=== PATIENT | male | born 1955 | race Caucasian/White ===

== ENCOUNTER 2021-05-11 12:48 | Emergency (ER) | payer MEDICARE ==
[2021-05-11 13:01] VITALS: PULSE 55
[2021-05-11] MEDS ORDERED: MECLIZINE 25 MG TAB PO STA (14:41)
[2021-05-11 15:10] LABS: Basophils % (A) 0 %; Eosinophils # (A) 0.1 k/uL (0-0.7); Eosinophils % (A) 1 %; HCT 49.8 % (39.0-53.0); HGB 16.2 gm/dL (13.0-17.5); Lymphocytes % (A) 11 %; MCH 31.6 pg (25.0-35.0); MCHC 32.5 g/dL (31.0-37.0); MCV 97.3 fL (80.0-100.0); Mean Platelet Volume 8.2; Monocytes # (A) 0.3 k/uL (0-1.0); Monocytes % (A) 4 %; Neutrophils # (A) 7.3 k/uL (1.3-7.7); Neutrophils % (A) 83 %; Platelet Count 190 k/uL (150-450); RBC 5.12 m/uL (4.30-5.90); RDW 13.5 % (11.5-15.5); WBC 8.8 k/uL (3.8-10.6)
[2021-05-11 15:16] LABS: ALT 19 U/L (4-49); AST 24 U/L (17-59); African American GFR (CKD) >90 (>60 ml/min/1.73 sqM); Alkaline Phosphatase 75 U/L (38-126); Anion Gap 8 mmol/L; Blood Urea Nitrogen 15 mg/dL (9-20); Calcium 9.5 mg/dL (8.4-10.2); Carbon Dioxide 25 mmol/L (22-30); Chloride 105 mmol/L (98-107); Glucose 208 mg/dL (74-99); Magnesium 1.8 mg/dL (1.6-2.3); Non-African American GFR(CKD) >90 (>60 ml/min/1.73 sqM); Potassium 4.5 mmol/L (3.5-5.1); Sodium 138 mmol/L (137-145); Total Bilirubin 0.8 mg/dL (0.2-1.3); Total Protein 6.6 g/dL (6.3-8.2)
[2021-05-11 15:38] LABS: INR 1.1 (<1.2); Partial Thromboplastin Time 22.3 sec (22.0-30.0); Prothrombin Time 11.7 sec (9.0-12.0)
--- NOTE | 2021-05-11 15:48 | ED ---
General Adult HPI - General Chief complaint: Dizziness Stated complaint: dizziness Time Seen by Provider: 05/11/21 13:00 Source: patient, family, RN notes reviewed, old records reviewed Mode of arrival: wheelchair Limitations: no limitations - History of Present Illness Initial comments: This is a 65-year-old male who presents emergency Department because his dizziness. Patient states woke up in the middle the night he went to walk around everything was moving. Patient states he became nauseous and vomited once and was also at one point time diaphoretic per patient states anytime he moves much worse. Patient states she's never had before. Patient denies any chest pain difficulty breathing or shortness of breath per patient denies any fever chills or cough per patient denies any headache patient denies numbness or weakness. Patient denies any lightheadedness. Patient denies any near syncopal episode. Patient denies any abdominal pain. Patient denies any dysuria hematuria urinary frequency. Patient has a past medical history significant for diabetes hypertension high cholesterol and atrial fibrillation - Related Data Previous Rx's Medication Instructions Recorded Meclizine [Antivert] 25 mg PO TID #20 tab 05/11/21 Sacubitril/Valsartan [Entresto 24 1 each PO Q12H #30 tablet 05/11/21 mg-26 mg Tablet] Allergies Allergy/AdvReac Type Severity Reaction Status Date / Time Penicillins Allergy Rash/Hives Verified 05/11/21 13:02 Review of Systems ROS Statement: Those systems with pertinent positive or pertinent negative responses have been documented in the HPI. ROS Other: All systems not noted in ROS Statement are negative. Past Medical History Past Medical History: Atrial Fibrillation, Heart Failure, Diabetes Mellitus, Hypertension History of Any Multi-Drug Resistant Organisms: None Reported Additional Past Surgical History / Comment(s): shoulder sx Past Psychological History: No Psychological Hx Reported Smoking Status: Former smoker Past Alcohol Use History: Occasional Past Drug Use History: None Reported General Exam - General Exam Comments Initial Comments: GENERAL: Patient is well-developed and well-nourished. Patient is nontoxic and well- hydrated and is in mild distress. ENT: Neck is soft and supple. No significant lymphadenopathy is noted. Oropharynx is clear. Moist mucous membranes. Neck has full range of motion without eliciting any pain. EYES: The sclera were anicteric and conjunctiva were pink and moist. Extraocular movements were intact and pupils were equal round and reactive to light. Eyelids were unremarkable. PULMONARY: Unlabored respirations. Good breath sounds bilaterally. No audible rales rhonchi or wheezing was noted. CARDIOVASCULAR: There is a regular rate and rhythm without any murmurs gallops or rubs. ABDOMEN: Soft and nontender with normal bowel sounds. SKIN: Skin is clear with no lesions or rashes and otherwise unremarkable. NEUROLOGIC: Patient is alert and oriented x3. Cranial nerves II through XII are grossly intact. Motor and sensory are also intact. Normal speech, volume and content. Symmetrical smile. Finger to nose testing bilaterally was normal MUSCULOSKELETAL: Normal extremities with adequate strength and full range of motion. No lower extremity swelling or edema. No calf tenderness. LYMPHATICS: No significant lymphadenopathy is noted PSYCHIATRIC: Normal psychiatric evaluation. Limitations: no limitations Course Vital Signs 05/11/21 12:58 Temperature 98.1 F Pulse Rate 55 L Respiratory 17 Rate Blood Pressure 149/81 O2 Sat by Pulse 98 Oximetry Medical Decision Making - Medical Decision Making EKG shows sinus bradycardia at [address] interval 286 QRS is under 4 QT interval is 56 QTC is 466. EKG shows no ST segment elevation or depression. CT of the brain shows no acute abnormality. Chest x-ray shows no acute abnormality. I gave the patient some Antivert while in the emergency department the patient improve his symptoms. - Lab Data Result diagrams: 05/11/21 14:56 05/11/21 14:56 Lab Results 05/11/21 05/11/21 05/11/21 Range/Units 14:56 14:56 14:56 WBC 8.8 (3.8-10.6) k/uL RBC 5.12 (4.30-5.90) m/uL Hgb 16.2 (13.0-17.5) gm/dL Hct 49.8 (39.0-53.0) % MCV 97.3 (80.0-100.0) fL MCH 31.6 (25.0-35.0) pg MCHC 32.5 (31.0-37.0) g/dL RDW 13.5 (11.5-15.5) % Plt Count 190 (150-450) k/uL MPV 8.2 Neutrophils % 83 % Lymphocytes % 11 % Monocytes % 4 % Eosinophils % 1 % Basophils % 0 % Neutrophils # 7.3 (1.3-7.7) k/uL Lymphocytes # 1.0 (1.0-4.8) k/uL Monocytes # 0.3 (0-1.0) k/uL Eosinophils # 0.1 (0-0.7) k/uL Basophils # 0.0 (0-0.2) k/uL PT 11.7 (9.0-12.0) sec INR 1.1 (<1.2) APTT 22.3 (22.0-30.0) sec Sodium 138 (137-145) mmol/L Potassium 4.5 (3.5-5.1) mmol/L Chloride 105 (98-107) mmol/L Carbon Dioxide 25 (22-30) mmol/L Anion Gap 8 mmol/L BUN 15 (9-20) mg/dL Creatinine 0.79 (0.66-1.25) mg/dL Est GFR (CKD-EPI)AfAm >90 (>60 ml/min/1.73 sqM) Est GFR (CKD-EPI)NonAf >90 (>60 ml/min/1.73 sqM) Glucose 208 H (74-99) mg/dL Calcium 9.5 (8.4-10.2) mg/dL Magnesium 1.8 (1.6-2.3) mg/dL Total Bilirubin 0.8 (0.2-1.3) mg/dL AST 24 (17-59) U/L ALT 19 (4-49) U/L Alkaline Phosphatase 75 (38-126) U/L Troponin I (0.000-0.034) ng/mL Total Protein 6.6 (6.3-8.2) g/dL Albumin 4.0 (3.5-5.0) g/dL 05/11/21 Range/Units 14:56 WBC (3.8-10.6) k/uL RBC (4.30-5.90) m/uL Hgb (13.0-17.5) gm/dL Hct (39.0-53.0) % MCV (80.0-100.0) fL MCH (25.0-35.0) pg MCHC (31.0-37.0) g/dL RDW (11.5-15.5) % Plt Count (150-450) k/uL MPV Neutrophils % % Lymphocytes % % Monocytes % % Eosinophils % % Basophils % % Neutrophils # (1.3-7.7) k/uL Lymphocytes # (1.0-4.8) k/uL Monocytes # (0-1.0) k/uL Eosinophils # (0-0.7) k/uL Basophils # (0-0.2) k/uL PT (9.0-12.0) sec INR (<1.2) APTT (22.0-30.0) sec Sodium (137-145) mmol/L Potassium (3.5-5.1) mmol/L Chloride (98-107) mmol/L Carbon Dioxide (22-30) mmol/L Anion Gap mmol/L BUN (9-20) mg/dL Creatinine (0.66-1.25) mg/dL Est GFR (CKD-EPI)AfAm (>60 ml/min/1.73 sqM) Est GFR (CKD-EPI)NonAf (>60 ml/min/1.73 sqM) Glucose (74-99) mg/dL Calcium (8.4-10.2) mg/dL Magnesium (1.6-2.3) mg/dL Total Bilirubin (0.2-1.3) mg/dL AST (17-59) U/L ALT (4-49) U/L Alkaline Phosphatase (38-126) U/L Troponin I <0.012 (0.000-0.034) ng/mL Total Protein (6.3-8.2) g/dL Albumin (3.5-5.0) g/dL Disposition Clinical Impression: Vertigo Disposition: HOME SELF-CARE Instructions (If sedation given, give patient instructions): Vertigo (ED) Prescriptions: Meclizine [Antivert] 25 mg PO TID #20 tab Sacubitril/Valsartan [Entresto 24 mg-26 mg Tablet] 1 each PO Q12H #30 tablet Is patient prescribed a controlled substance at d/c from ED?: No Referrals: Nonstaff,Physician [Primary Care Provider] - 1-2 days Time of Disposition: 16:35
--- NOTE | 2021-05-11 15:59 | XR ---
EXAMINATION TYPE: XR chest 2V DATE OF EXAM: 05/11/2021 COMPARISON: None INDICATION: Chest pain and dizziness TECHNIQUE: Frontal and lateral views of the chest are obtained. FINDINGS: The heart size is normal. The pulmonary vasculature is normal. The lungs are clear. This hyperinflation flattening the diaphragms compatible with COPD IMPRESSION: 1. No acute pulmonary process. 2. COPD
--- NOTE | 2021-05-11 16:15 | CT ---
EXAMINATION TYPE: CT brain wo con DATE OF EXAM: 05/11/2021 COMPARISON: None INDICATION: vertigo and weakness DLP: 1099.4 mGycm, Automated exposure control for dose reduction was used. CONTRAST: None CT of the brain is performed utilizing 3 mm thick sections through the posterior fossa and 3 mm thick sections through the remaining calvarium. Study is performed within 24 hours of arrival to the hosp ital. No abnormal hyperdensity is present to suggest an acute intracranial hemorrhage. No mass lesion is evident. No acute infarcts are evident. Ventricles and sulci are mildly prominent for the patient age. Also thickening is seen within maxillary sinuses. Remaining paranasal sinuses and mastoid air cells a re clear. IMPRESSIONS: 1. Mild age-related atrophy.
[2021-05-11 17:07] VITALS: BP 148/80; RESP 18; TEMP 98.9
== END 2021-05-11 17:05 | disposition home or self-care (01) ==
LOC: EC 12:48
DX: R42 Dizziness and giddiness (principal); E11.9 Type 2 diabetes mellitus without complications; I11.0 Hypertensive heart disease with heart failure; I50.9 Heart failure, unspecified; I48.91 Unspecified atrial fibrillation; Z87.891 Personal history of nicotine dependence
CPT/HCPCS: 36415; 70450; 71046; 80053; 83735; 84484; 85025; 85610; 85730; 93005; 99284

== ENCOUNTER 2024-01-05 19:18 | Outpatient (CLI) | payer OTHER ==
--- NOTE | 2024-01-10 13:52 | P.PCN ---
Date of Procedure: 01/05/24 Operative Findings: Polysomnography report Date of services 01/05/2024 Pertinent history This is a 68-year-old male patient with last known ago witnessed apneas. The patient is chronic fatigue and limited sleepiness with an Greenwood score of 4. The patient is obese with a BMI of 42. The patient has significant crowding the posterior pharynx with 1 about the class IV. The patient also has family history of obstructive sleep apnea. He has comorbid conditions including previous history of viral cardiomyopathy, hypertension, chronic A-fib and diabetes mellitus. Patient also has BPH maintained on Flomax. Pertinent physical findings The patient's height is 5 feet and 4 inches, weight is 247 pounds with a BMI of 42.4 Technical description The patient was studied using a standard complex polysomnography protocol that included recording of the 2 EKG, Central, occipital and frontal EEG, right and left outer canthus EOG, submental EMG, right and left anterior tibialis EMG, respiratory airflow by thermocouple and or pressure/flow transducer, respiratory efforts by abdominal and thoracic PVDF belts, oxygen saturation by cable oximetry. Position by observation synchronized the PSG. Equipment used: [employer]. Sleep characteristics Total recording duration was 417.5 minutes and the patient had a total sleep time was 336.0 minutes. The overall sleep the patient was 80.4%, related to sleep onset was 31 minutes. The latency to REM sleep was 148.0 minutes. Sleep architecture was catheterized by 45.8% stage I, 42.7% stage II, 0% stage III, 11.5% of REM sleep. The wake after sleep onset time was 43 minutes. The total arousal index was 19.6 Respiratory analysis The study showed a total of 130 obstructive events of which 3 were obstructive apneas, 0 mixed apneas and 127 for obstructive hypopneas. The AHI was calculated to be at 22.3. No central events and the patient's central apnea index was 0. Noted the patient's disease was worsened with supine body position. AHI while supine was 45 and the AHI during REM sleep was 32.7. Oxygenation analysis The patient had a baseline pulse ox of 96% while awake. This the lowest oxygen saturation occurred during REM sleep and this was at 71%. The patient spent approximately 7 hours and 39 minutes of sleep time below pulse ox of 89% consistent with significant and severe nocturnal oxygen desaturations Sleep continue with the summary The patient had about 110 arousals with an index of 19.6. The respiratory arousal index was 6.3 Periodic limb movement summary There was a total of 314. Re periodic limb movement activity with an index of 56.1. The patient had a total of 6 periodic limb movement activity with arousa ls with an index of 1.1 Cardiac summary Average heart rate was 76 with a minimum heart rate of 68 and a maximum heart rate of 84 Assessment Obstructive sleep apnea moderate in severity with an AHI of 22.4, worsening supine body position with an AHI of 45 and worse during REM sleep with an AHI of 32.7. Nocturnal oxygen saturation with a minimum pulse ox of 72% occurring during REM sleep. Loud snoring Chronic fatigue and sleepiness, Greenwood score of 4 Obesity with a BMI of 42 History of viral cardiomyopathy History of chronic atrial fibrillation Diabetes mellitus type 2 Hypertension BPH Plan Recommending CPAP therapy for this patient who has significant obstructive sleep apnea and has significant sleep fragmentation and abnormality sleep architecture with the patient is overall presentation of stage I and stage II sleep. Obviously, this patient would benefit from CPAP therapy. Patient will be asked to come into the sleep center to undergo a CPAP titration and proceed with the treatment accordingly. Based on his disease severity, symptoms and comorbidities, CPAP therapy is recommended for this patient.
== END 2024-01-06 05:30 | disposition home or self-care (01) ==
LOC: 3 N SLEEP 19:18
PROVIDERS: ATTEND Internal Medicine Critical Care Medicine
DX: G47.33 Obstructive sleep apnea (adult) (pediatric) (principal); G47.36 Sleep related hypoventilation in conditions classified elsewhere; G47.10 Hypersomnia, unspecified; G47.52 REM sleep behavior disorder; R53.82 Chronic fatigue, unspecified; E66.9 Obesity, unspecified; E11.9 Type 2 diabetes mellitus without complications; I10 Essential (primary) hypertension; I48.20 Chronic atrial fibrillation, unspecified; N40.0 Benign prostatic hyperplasia without lower urinary tract symptoms; Z68.41 Body mass index [BMI] 40.0-44.9, adult; Z86.79 Personal history of other diseases of the circulatory system; Z88.0 Allergy status to penicillin; Z79.899 Other long term (current) drug therapy
CPT/HCPCS: 95810

== ENCOUNTER → 2024-04-02 | Outpatient (CLI) | payer OTHER ==
[2024-04-02 19:26] LABS: BUN/Creat Ratio 20.85 Ratio (12.00-20.00); Blood Urea Nitrogen 27.1 mg/dL (9.0-27.0); Carbon Dioxide 22.7 mmol/L (21.6-31.8); Chloride 104 mmol/L (96-109); Glucose 192 mg/dL (70-110); Sodium 140 mmol/L (135-145)
[2024-04-02 19:27] LABS: Calcium 9.2 mg/dL (8.7-10.3)
== END | disposition home or self-care (01) ==
LOC: LABWHC1 10:35
PROVIDERS: ATTEND Internal Medicine
DX: Z01.812 Encounter for preprocedural laboratory examination (principal)
CPT/HCPCS: 36415; 80048

== ENCOUNTER 2024-04-06 11:31 | Day surgery (SDC) | payer OTHER ==
[2024-04-04 12:10] VITALS: BMI 37.8
[2024-04-06 12:11] VITALS: RESP 18; TEMP 96.9
[2024-04-06 12:24] LABS: Glucose,Whole Blood 181 mg/dL (70-110)
[2024-04-06] MEDS: SODIUM CHLORIDE 0.9% 500 ML 500 ML IV SCH (12:29)
[2024-04-06] MEDS: IV FLUID CONTINUATION 1,000 ML IV ONE ×2 (12:31→14:20)
[2024-04-06] MEDS ORDERED: LIDOCAINE 1% INJ 10MG/ML (20 ML MDV) ONE (13:26)
[2024-04-06] MEDS ORDERED: PROPOFOL 10 MG/ML 20 ML VIAL IV ONE (13:26)
[2024-04-06] MEDS: BENZOCAINE SPRAY 1 CAN TOPICAL ONE (13:27)
--- NOTE | 2024-04-06 13:52 | P.TEE ---
Description of Procedure(s): Procedure performed: Transesophageal Echocardiogram with color flow doppler, pulsed wave doppler and continuous wave doppler, synchronized cardioversion Moderate conscious sedation: Moderate conscious sedation was supplied by anesthesia, see separate report. Complications: none Indications: atrial fibrillation PROCEDURE: After the risks, benefits and alternatives of the above mentioned procedure was explained in detail with the patient, informed consent was obtained. Patient was brought to the lab in a fasting state. Patient was given sedation by anesthesia, see separate report. The throat was sprayed with Hurricane to anesthetize the throat. A lubricated Omni probe was then introduced into the esophagus and stomach and multiple views were obtained. 2D echo with color flow doppler, pulsed wave doppler and continuous wave doppler was utilized. Agitated saline bubbles were injected to assess for any intra-atrial shunt. The probe was then removed. There was no thrombus noted and therefore patient underwent synchronized cardioversion x 1 with 200J with resultant sinus rhythm. Patient tolerated the procedure well. Patient was transferred to the post procedure area in stable and satisfactory condition. FINDINGS: 1. The aortic valve is tricuspid and function normally. 2. The mitral valve appears be normal with mild regurgitation. 3. Tricuspid valve appears to be normal. 4. The interatrial septum is intact. No evidence of PFO. 5. Left atrial appendage is free of clot. 6. Left ventricular ejection fraction 35-40%
[2024-04-06 14:45] LABS: Glucose,Whole Blood 147 mg/dL (70-110)
[2024-04-06 15:06] VITALS: BP 113/69; PULSE 64
== END 2024-04-06 15:21 | disposition home or self-care (01) ==
LOC: OR 11:31
PROVIDERS: ATTEND Internal Medicine
DX: I48.0 Paroxysmal atrial fibrillation (principal); I34.0 Nonrheumatic mitral (valve) insufficiency; I11.0 Hypertensive heart disease with heart failure; I50.9 Heart failure, unspecified; G47.33 Obstructive sleep apnea (adult) (pediatric); E11.9 Type 2 diabetes mellitus without complications; K21.9 Gastro-esophageal reflux disease without esophagitis; F41.9 Anxiety disorder, unspecified; Z88.0 Allergy status to penicillin; Z79.01 Long term (current) use of anticoagulants; Z79.4 Long term (current) use of insulin; Z79.899 Other long term (current) drug therapy
CPT/HCPCS: 93312; 93320; 93325; 92960; J2001; J2704

== ENCOUNTER 2024-06-13 19:30 | Outpatient (CLI) | payer OTHER ==
--- NOTE | 2024-06-19 22:38 | P.PCN ---
Date of Procedure: 06/13/24 Operative Findings: Polysomnography/CPAP titration report Date of service is 06/13/2024 Pertinent history 68-year-old male patient with known history of obstructive sleep apnea with an AHI of 22, worse during REM sleep with an AHI of 32 during REM. The patient also has worsening sleep apnea in the supine body position with an AHI of 45 while supine. The patient was quite hesitant in utilizing CPAP therapy due to claustrophobia. After lengthy discussion, patient decided to undergo a CPAP titration. The patient is not a candidate for inspire/hypoglossal nerve stimulation therapy due to an elevated body mass index Pertinent physical findings The patient has a body mass index of 42.6 with a weight of 248 Technical description The patient was studied using a standard complex polysomnography protocol that included recording of the Lead II EKG, Central, occipital and frontal EEG, right and left outer canthus EOG, submental EMG, right and left anterior tibialis EMG, respiratory airflow by thermocouple and or pressure/flow transducer, respiratory efforts by abdominal and thoracic PVDF belts, oxygen saturation by cable oximetry. Position by observation synchronized the PSG. Equipment used: [employer]. Stepwise CPAP titration was done to eliminate obstructive respiratory events Sleep characteristics The total recording duration was 416 minutes. The total sleep time was 353.0 minutes. The sleep efficiency was 84.8%. Latency to sleep onset was 21.5 minutes. Latency to REM sleep was 100 minutes. The sleep architecture was characterized by 22.1% stage I, 36% stage II, 0% stage III and a total of 41.5% REM sleep. Obviously there was a REM labile while being on CPAP therapy CPAP titration study The patient was started on CPAP titration initially at a pressure of 4 cm of water pressure was gradually increased by increments of 1 cm to reach a maximum CPAP pressure of 12 cm of water. The patient was also trialed on BiPAP at pressures of 13/9 ,14/10 and 15/11 cm of water. I carefully reviewed the titration taking account the patient's sleep stage and body position. All sleep stages were encountered. The patient was in a REM rebound. Opted for CPAP over BiPAP therapy in this patient. There was considerable improvement in the patient's obstructive respiratory events elevated CPAP pressures use especially at the highest pressure of 12 cm of water. There was some residual obstructive hypopneas. Based on all this, I am going to offer the patient a APAP machine with a wide range of pressures starting with a minimum of 7 cm of water and a maximum of 15 cm of water. Sleep continuity summary The patient a total of 76 arousals with an index of 12.9. The respiratory arousal index was 1.4 Periodic limb movement activity A total of 11 periodic limb movement activity with a index of 1.9 Cardiac summary The patient has an average cardiac rate of 69 with a minimum heart rate of 42 and a maximum heart rate of 146. The patient was found to be in A-fib. Assessment Obstructive sleep apnea with an AHI of 22, worsened in supine body position and worse during REM sleep. Improved with CPAP therapy REM rebound related to CPAP titration/CPAP therapy Obesity with a body mass index of 42 Atrial fibrillation Diabetes mellitus type 2 Hypertension Hyperlipidemia CHF with systolic heart failure Plan Will provide the patient an APAP machine pressures of minimum of 7 and a maximum of 15. The patient will be offered an AirFit F30 I, medium size. Encourage weight loss. Optimize comorbidities. See him back in office in 30 to 90 days to assess clinical response and compliancy.
== END 2024-06-14 05:43 | disposition home or self-care (01) ==
LOC: 3 N SLEEP 19:30
PROVIDERS: ATTEND Internal Medicine Critical Care Medicine
DX: G47.33 Obstructive sleep apnea (adult) (pediatric)
CPT/HCPCS: 95811

== ENCOUNTER → 2024-11-09 | Outpatient (CLI) | payer OTHER ==
[2024-11-09 15:31] LABS: Blood Urea Nitrogen 23.6 mg/dL (9.0-27.0); Chloride 109 mmol/L (96-109); Sodium 144 mmol/L (135-145)
[2024-11-09 16:52] LABS: HCT 50.5 % (39.6-50.0); HGB 16.5 g/dL (13.0-17.0); MCH 32.4 pg (27.0-32.0); MCHC 32.7 g/dL (32.0-37.0); MCV 99.2 FL (80.0-97.0); Mean Platelet Volume 10.8 FL (9.5-12.2); NRBC Per 100 WBC 0 X 10*3/uL (0.00-0.01); Platelet Count 235 X 10*3/uL (140-440); RBC 5.09 X 10*6/uL (4.40-5.60); RDW 12.8 % (11.5-14.5); WBC 6.32 X 10*3/uL (4.50-10.00)
== END | disposition home or self-care (01) ==
LOC: LABPAT 12:03
PROVIDERS: ATTEND Internal Medicine Clinical Cardiac Electrophysiology
DX: I48.19 Other persistent atrial fibrillation (principal)
CPT/HCPCS: 36415; 80051; 82565; 84520; 85027

== ENCOUNTER 2024-11-14 20:24 | Inpatient (IN) | payer OTHER, MEDICARE ==
--- NOTE | 2024-11-14 20:58 | XR ---
EXAMINATION TYPE: XR chest 2V DATE OF EXAM: 11/14/2024 8:54 PM COMPARISON: Chest x-ray May 11, 2021 CLINICAL INDICATION: Male, 69 years old with history of difficulty breathing, TECHNIQUE: Frontal and lateral views of the chest are obtained. FINDINGS: There is mild cardiomegaly with mild central vascular congestion. No pleural effusion or p neumothorax seen bilaterally. The osseous structures are intact. IMPRESSION: Findings suggest CHF exacerbation/fluid overload state. Correlate clinically. [facility], , 11/14/2024 8:55 PM
--- NOTE | 2024-11-14 21:06 | ED ---
SOB HPI - General Chief Complaint: Shortness of Breath Stated Complaint: SOB Time Seen by Provider: 11/14/24 20:30 Source: patient, EMS Mode of arrival: EMS - History of Present Illness Initial Comments: 69-year-old male with past medical history of A-fib, congestive heart failure, diabetes, hypertension who presents to the emergency department reporting shortness of breath. Patient states that for the past 2 days he has had increased work of breathing. He typically does not wear oxygen at home. He has had sick contacts that are positive for influenza A. When EMS got on scene tonight they found the patient to be oxygenating in the 70s. They did give him a DuoNeb breathing treatment and placed him on 4 L of oxygen. Patient does admit to history of congestive heart failure. Was previously on Lasix however was taken off of this medication per his doctors. He is scheduled to have a cardiac ablation on the . Because of this upcoming procedure he was taken off of his amiodarone 1 month ago. Patient admits to some tightness in his chest. No report of any fevers. No ripping or tearing station to his back. Does admit to some lower extremity edema. No other alleviating, precipitating or modifying factors - Related Data Home Medications Medication Instructions Recorded Confirmed Amiodarone [Cordarone] 200 mg PO DAILY 04/04/24 04/06/24 Apixaban [Eliquis] 5 mg PO BID 04/04/24 04/06/24 Atorvastatin [Lipitor] 40 mg PO HS 04/04/24 04/06/24 Empagliflozin [Jardiance] 25 mg PO DAILY 04/04/24 04/06/24 Furosemide [Lasix] 40 mg PO DAILY PRN 04/04/24 04/06/24 Insulin Aspart [NovoLOG Flexpen] 10 units SQ TID 04/04/24 04/06/24 Insulin Detemir (Levemir) [Levemir] 45 unit SQ HS 04/04/24 04/06/24 Magnesium Oxide [Mag-Ox] 400 mg PO DAILY 04/04/24 04/06/24 Metoprolol Succinate [Metoprolol 25 mg PO DAILY 04/04/24 04/06/24 Succinate ER] Multivitamins, Thera [Multivitamin 1 tab PO DAILY 04/04/24 04/06/24 (formulary)] Omeprazole 20 mg PO DAILY 04/04/24 04/06/24 Saw [place] (Unknown Dose) 1 tab PO DAILY 04/04/24 04/06/24 Tamsulosin [Flomax] 0.4 mg PO HS 04/04/24 04/06/24 Previous Rx's Medication Instructions Recorded Sacubitril/Valsartan [Entresto 24 1 each PO Q12H #30 tablet 05/11/21 mg-26 mg Tablet] Allergies Allergy/AdvReac Type Severity Reaction Status Date / Time Penicillins Allergy Rash/Hives Verified 11/14/24 20:32 Review of Systems ROS Statement: Those systems with pertinent positive or pertinent negative responses have been documented in the HPI. ROS Other: All systems not noted in ROS Statement are negative. Past Medical History Past Medical History: Atrial Fibrillation, Heart Failure, Diabetes Mellitus, Hypertension History of Any Multi-Drug Resistant Organisms: None Reported Additional Past Surgical History / Comment(s): shoulder sx Past Psychological History: No Psychological Hx Reported Smoking Status: Former smoker Course Vital Signs 11/14/24 11/14/24 11/14/24 20:27 20:34 20:44 Temperature 98.9 F Pulse Rate 141 H 126 H Pulse Rate [ Investigations Director ] Respiratory 24 24 21 Rate Blood Pressure 112/70 114/66 Blood Pressure [Right Arm] O2 Sat by Pulse 99 95 Oximetry 11/14/24 11/14/24 11/14/24 21:05 21:20 21:35 Temperature Pulse Rate Pulse Rate [ 144 H 141 H 141 H Investigations Director ] Respiratory 18 17 18 Rate Blood Pressure Blood Pressure 89/63 104/61 91/68 [Right Arm] O2 Sat by Pulse 99 99 99 Oximetry 11/14/24 11/14/24 21:50 22:05 Temperature Pulse Rate Pulse Rate [ 131 H 135 H Investigations Director ] Respiratory 16 15 Rate Blood Pressure Blood Pressure 105/87 102/57 [Right Arm] O2 Sat by Pulse 97 95 Oximetry Medical Decision Making - Medical Decision Making Was pt. sent in by a medical professional or institution (, PA, CLINICAL DATA ASSOCIATE, urgent care, hospital, or residential...) When possible be specific @ -[No] Did you speak to anyone other than the patient for history (EMS, parent, family, police, friend...)? What history was obtained from this source @ -[No] Did you review nursing and triage notes (agree or disagree)? Why? @ -[I reviewed and agree with nursing and triage notes] Were old charts reviewed (outside hosp., previous admission, EMS record, old EKG, old radiological studies, urgent care reports/EKG's, residential records)? Report findings @ -[No old charts were reviewed] Differential Diagnosis (chest pain, altered mental status, abdominal pain women, abdominal pain men, vaginal bleeding, weakness, fever, dyspnea, syncope, headache, dizziness, GI bleed, back pain, seizure, CVA, palpatations, mental health, musculoskeletal)? @ -[not applicable] EKG interpreted by me (3pts min.). @ -Yes and demonstrates A-fib with a rate of 136. QRS 114. QTc of 404. No acute ST segment elevations or depressions X-rays interpreted by me (1pt min.). @ -[None done] CT interpreted by me (1pt min.). @ -[None done] U/S interpreted by me (1pt. min.). @ -[None done] What testing was considered but not performed or refused? (CT, X-rays, U/S, labs)? Why? @ -[None] What meds were considered but not given or refused? Why? @ -[None] Did you discuss the management of the patient with other professionals (professionals i.e. , PA, CLINICAL DATA ASSOCIATE, lab, RT, psych nurse, social work manager, electrical engineering director, teacher, property officer, disease case manager rn)? Give summary @ -[No] Was smoking cessation discussed for >3mins.? @ -[No] Was critical care preformed (if so, how long)? @ -[No] Were there social determinants of health that impacted care today? How? (Homelessness, low income, unemployed, alcoholism, drug addiction, transportation, low edu. Level, literacy, decrease access to med. care, senior living, rehab)? @ -[No] Was there de-escalation of care discussed even if they declined (Discuss DNR or withdrawal of care, Hospice)? DNR status @ -[No] What co-morbidities impacted this encounter? (DM, HTN, Smoking, COPD, CAD, Cancer, CVA, ARF, Chemo, Hep., AIDS, mental health diagnosis, sleep apnea, morbid obesity)? @ -[None] Was patient admitted / discharged? Hospital course, mention meds given and route, prescriptions, significant lab abnormalities, going to OR and other pertinent info. @ -[hospital course] Undiagnosed new problem with uncertain prognosis? @ -[No] Drug Therapy requiring intensive monitoring for toxicity (Heparin, Nitro, Insulin, Cardizem)? @ -[No] Were any procedures done? @ -[No] Diagnosis/symptom? @ -[default] Acute, or Chronic, or Acute on Chronic? @ -[default] Uncomplicated (without systemic symptoms) or Complicated (systemic symptoms)? @ -[default] Side effects of treatment? @ -[No] Exacerbation, Progression, or Severe Exacerbation? @ -[No] Poses a threat to life or bodily function? How? (Chest pain, [place], [place], pneumonia, PE, COPD, DKA, ARF, appy, cholecystitis, CVA, Diverticulitis, Homicidal, Suicidal, threat to staff... and all critical care pts) @ -[No] - Lab Data Result diagrams: 11/14/24 20:43 11/14/24 20:43 Lab Results 11/14/24 11/14/24 11/14/24 Range/Units 20:43 20:43 20:43 WBC 8.5 (3.8-10.6) k/uL RBC 4.80 (4.30-5.90) m/uL Hgb 16.2 (13.0-17.5) gm/dL Hct 49.8 (39.0-53.0) % MCV 103.9 H (80.0-100.0) fL MCH 33.7 (25.0-35.0) pg MCHC 32.5 (31.0-37.0) g/dL RDW 13.0 (11.5-15.5) % Plt Count 117 L (150-450) k/uL MPV 8.7 Neutrophils % 82 % Lymphocytes % 10 % Monocytes % 5 % Eosinophils % 0 % Basophils % 1 % Neutrophils # 7.0 (1.3-7.7) k/uL Lymphocytes # 0.9 L (1.0-4.8) k/uL Monocytes # 0.4 (0-1.0) k/uL Eosinophils # 0.0 (0-0.7) k/uL Basophils # 0.1 (0-0.2) k/uL Hypochromasia Slight Macrocytosis Slight PT 14.0 H (10.0-12.5) sec INR 1.3 H (<1.2) APTT 26.2 (22.0-30.0) sec Sodium 136 L (137-145) mmol/L Potassium 4.2 (3.5-5.1) mmol/L Chloride 102 (98-107) mmol/L Carbon Dioxide 16 L (22-30) mmol/L Anion Gap 18 mmol/L BUN 24 H (9-20) mg/dL Creatinine 1.28 H (0.66-1.25) mg/dL Est GFR (CKD-EPI)AfAm 65 (>60 ml/min/1.73 sqM) Est GFR (CKD-EPI)NonAf 56 (>60 ml/min/1.73 sqM) Glucose 212 H (74-99) mg/dL Plasma Lactic Acid Frantz (0.7-2.0) mmol/L Calcium 8.7 (8.4-10.2) mg/dL Total Bilirubin 1.4 H (0.2-1.3) mg/dL AST 50 (17-59) U/L ALT 26 (4-49) U/L Alkaline Phosphatase 59 (38-126) U/L Troponin I (0.000-0.034) ng/mL NT-Pro-B Natriuret Pep 6170 pg/mL Total Protein 6.3 (6.3-8.2) g/dL Albumin 3.9 (3.5-5.0) g/dL Influenza Type A (PCR) (Not Detectd) Influenza Type B (PCR) (Not Detectd) RSV (PCR) (Not Detectd) SARS-CoV-2 (PCR) (Not Detectd) 11/14/24 11/14/24 11/14/24 Range/Units 20:43 20:43 20:43 WBC (3.8-10.6) k/uL RBC (4.30-5.90) m/uL Hgb (13.0-17.5) gm/dL Hct (39.0-53.0) % MCV (80.0-100.0) fL MCH (25.0-35.0) pg MCHC (31.0-37.0) g/dL RDW (11.5-15.5) % Plt Count (150-450) k/uL MPV Neutrophils % % Lymphocytes % % Monocytes % % Eosinophils % % Basophils % % Neutrophils # (1.3-7.7) k/uL Lymphocytes # (1.0-4.8) k/uL Monocytes # (0-1.0) k/uL Eosinophils # (0-0.7) k/uL Basophils # (0-0.2) k/uL Hypochromasia Macrocytosis PT (10.0-12.5) sec INR (<1.2) APTT (22.0-30.0) sec Sodium (137-145) mmol/L Potassium (3.5-5.1) mmol/L Chloride (98-107) mmol/L Carbon Dioxide (22-30) mmol/L Anion Gap mmol/L BUN (9-20) mg/dL Creatinine (0.66-1.25) mg/dL Est GFR (CKD-EPI)AfAm (>60 ml/min/1.73 sqM) Est GFR (CKD-EPI)NonAf (>60 ml/min/1.73 sqM) Glucose (74-99) mg/dL Plasma Lactic Acid Frantz 4.0 H* (0.7-2.0) mmol/L Calcium (8.4-10.2) mg/dL Total Bilirubin (0.2-1.3) mg/dL AST (17-59) U/L ALT (4-49) U/L Alkaline Phosphatase (38-126) U/L Troponin I 0.034 (0.000-0.034) ng/mL NT-Pro-B Natriuret Pep pg/mL Total Protein (6.3-8.2) g/dL Albumin (3.5-5.0) g/dL Influenza Type A (PCR) Detected A (Not Detectd) Influenza Type B (PCR) Not Detected (Not Detectd) RSV (PCR) Not Detected (Not Detectd) SARS-CoV-2 (PCR) Not Detected (Not Detectd) Disposition Clinical Impression: Influenza A, Hypoxia, CHF (congestive heart failure), Atrial fibrillation with RVR Disposition: ADMITTED IP TO THIS HOSP Condition: Stable Is patient prescribed a controlled substance at d/c from ED?: No Referrals: [facility] [Primary Care Provider] - 1-2 days Time of Disposition: 22:43 Decision to Admit Reason: Admit from EC Decision Date: 11/14/24 Decision Time: 22:43
[2024-11-14 21:14] LABS: ALT 26 U/L (4-49); AST 50 U/L (17-59); African American GFR (CKD) 65 (>60 ml/min/1.73 sqM); Albumin 3.9 g/dL (3.5-5.0); Alkaline Phosphatase 59 U/L (38-126); Anion Gap 18 mmol/L; Blood Urea Nitrogen 24 mg/dL (9-20); Calcium 8.7 mg/dL (8.4-10.2); Carbon Dioxide 16 mmol/L (22-30); Chloride 102 mmol/L (98-107); Glucose 212 mg/dL (74-99); Non-African American GFR(CKD) 56 (>60 ml/min/1.73 sqM); Potassium 4.2 mmol/L (3.5-5.1); Sodium 136 mmol/L (137-145); Total Bilirubin 1.4 mg/dL (0.2-1.3); Total Protein 6.3 g/dL (6.3-8.2)
[2024-11-14 21:21] LABS: NT-Pro-B-Type Natriuretic Pept 6170 pg/mL
[2024-11-14] MEDS: DEXTROSE 5% IN WATER 100 ML with AMIODARONE 150 MG IV ONE (21:34)
[2024-11-14 21:35] LABS: INR 1.3 (<1.2); Influenza A Detected (Not Detectd); Influenza B Not Detected (Not Detectd); Partial Thromboplastin Time 26.2 sec (22.0-30.0); RSV Not Detected (Not Detectd)
[2024-11-14] MEDS: AMIODARONE 360 MG in DEXTROSE 5% IN WATER 200 ML IV ONE (22:04)
[2024-11-14 22:16] LABS: Basophils # (A) 0.1 k/uL (0-0.2); Basophils % (A) 1 %; Eosinophils % (A) 0 %; HCT 49.8 % (39.0-53.0); HGB 16.2 gm/dL (13.0-17.5); Hypochromasia Slight; Lymphocytes # (A) 0.9 k/uL (1.0-4.8); Lymphocytes % (A) 10 %; MCH 33.7 pg (25.0-35.0); MCHC 32.5 g/dL (31.0-37.0); MCV 103.9 fL (80.0-100.0); Macrocytosis Slight; Mean Platelet Volume 8.7; Monocytes # (A) 0.4 k/uL (0-1.0); Monocytes % (A) 5 %; Neutrophils % (A) 82 %; Platelet Count 117 k/uL (150-450); WBC 8.5 k/uL (3.8-10.6)
[2024-11-14] MEDS ORDERED: NALOXONE 0.4 MG/ML 1 ML VIAL IV PRN (22:50)
[2024-11-14] MEDS: INSULIN ASPART (NovoLOG) 100 UNIT/ML VIAL SQ SCH (23:15)
[2024-11-14] MEDS: INSULIN DETEMIR (LEVEMIR) 100 UNIT/ML SYR SQ SCH (23:16)
[2024-11-14] MEDS: APIXABAN 5 MG TAB PO SCH (23:17)
[2024-11-14] MEDS: FUROSEMIDE 10 MG/ML 4 ML VIAL IV STA (23:18)
[2024-11-14] MEDS: OSELTAMIVIR 75 MG CAP PO SCH (23:24)
--- NOTE | 2024-11-15 01:13 | P.HPIM ---
History of Present Illness H&P Date: 11/14/24 Chief Complaint: Shortness of breath Patient is a 69 year old male with PMHx of HFrEF (EF of 35 to 40% on ARDEN from March 2024), paroxysmal Afib, obstructive sleep apnea, insulin-dependent diabetes mellitus, hypertension, hyperlipidemia, BPH and GERD who presented to the ED wi th chief complaint of shortness of breath. Upon arrival of EMS, patient was oxygenating in the 70s. He received a DuoNeb treatment and was placed on 4 L of oxygen. Patient reports he follows with Dr. Mcdonald and is supposed to have an ablation done on 11/[address] Sears for his A-fib. Additionally but patient follows with Dr. Padilla for his sleep apnea, but states he is not compliant with his CPAP. Patient reports that cardiology told him to discontinue his Lasix and amiodarone. Patient reports compliance with his Eliquis and other medications. Patient states the dyspnea started today and has been getting progressively worse, is worse with exertion, and he spent the entire day in bed today. Patient denies use of home oxygen. Patient does endorse orthopnea and states he requires 4 pillows at night. He is currently also endorsing a dry cough, runny nose, nasal congestion. Patient also reports that 2 days ago he had some bodyaches, nausea, fatigue, chills, some abdominal discomfort, and decreased oral intake. He states that his ex- and her who was with have both been sick with the flu. Patient denies fevers, vomiting, headaches, urinary or bowel complaints, or leg swelling. ED documentation reviewed. In the ED patient was treated with IV Lasix and sta rted on amiodarone drip and Tamiflu. Review of systems: Pertinent positives and negatives as discussed in HPI, a complete review of systems was performed and all other systems are negative. Allergies: penicillin PCP: Socrates Mcconnell PA-C out of [facility] Social history: Tobacco: former smoker, 15 years ago Alcohol: 1 drink 3-4 days a week Recreational drugs: none Travel: none Sick contacts: ex- & who live with him Physical examination: Vital signs reviewed on admission: Temperature 98.9, heart rate 141 bpm, respiratory rate 24, blood pressure 112/70, O2 saturation 99% on 4 L nasal cannula General: nontoxic, mild distress, appears at stated age, conversational dyspnea noted Derm: warm, dry, intact Head: atraumatic, normocephalic, symmetric Eyes: anicteric sclera Mouth: no lip lesion, mucus membranes moist Cardiovascular: S1 S2 reg, no murmur Lungs: Diminished lung sounds at the bases bilaterally no wheezing, rhonchi, rales Abdominal: soft, non-tender to palpation, nondistended Extremities: No cyanosis, clubbing, or pedal edema. 1+ nonpitting edema bilaterally Neuro: Alert, Oriented to person, time and place, Gross neurological examination did not reveal any focal deficits. Cranial nerves II to XII grossly intact. Bilateral upper and lower extremity muscle strength intact and sensation intact. Psych: well appearing, appropriate affect EKG independently interpreted as A-fib with RVR, rate of 136 and QTc of 404, with no acute ST segment elevations or depressions CXR shows mild cardiomegaly with mild central vascular congestion, no pleural effusions or pneumothorax Labs on admission show WBC 0.5, hemoglobin 16.2, MCV 103.9, platelets 117. PT 14, INR 1.3, PTT 26.2. Sodium 136, potassium 4.2, chloride 102, bicarb 16, BUN 24, creatinine 1.28, glucose 212. Lactate 4. Cepheid was positive for influenza A. Assessment/Plan: Patient is a 69 year old male with PMHx of HFrEF (EF of 35 to 40% on ARDEN from March 2024), paroxysmal Afib, obstructive sleep apnea, insulin-dependent diabetes mellitus, hypertension, hyperlipidemia, BPH and GERD who presented to the ED with chief complaint of shortness of breath. Case was discussed with the ED physician and patient will be admitted to internal medicine service for CHF exacerbation, acute hypoxic respiratory failure, and A-fib with RVR. Active: Acute hypoxic respiratory failure secondary to Influenza A infection Currently on 4 L nasal cannula Wean oxygen as tolerated to maintain oxygen saturations of greater than 94% DuoNebs 4 times daily and every 2 hours as needed Consult pulmonology Check procalcitonin levels Continue Tamiflu 75 mg every 12 hours x 5 days influenza A positive unremarkable WBC 0.5, hemoglobin 16.2, chronic HFrEF (ARDEN from March 2024 shows EF of 35 to 40%) CXR shows mild cardiomegaly with mild central vascular congestion, no pleural effusions or pneumothorax Continue Lasix 40 mg p.o. daily Continue Entresto 24 mg26 mg daily Strict intake and output Daily weight Cardiology consult Cardiac monitoring Obtain daily BMP and Magnesium levels A-fib with RVR Patient was to undergo ablation on 11/22/2024 Continue amiodarone drip Cardiology consult Continue Eliquis 5 mg twice daily Cardiac monitoring EKG independently interpreted as A-fib with RVR, rate of 136 and QTc of 404, with no acute ST segment elevations or depressions Hyperglycemia in insulin-dependent diabetic Glucose on admission was 212 Accu-Cheks per [facility] protocol Moderate insulin sliding scale Hypoglycemia precautions Obtain A1c Will hold Jardiance levemir 45 units hs Lactic acidosis, likely secondary to dehydration Lactate 4 Continue to monitor Continue IV fluids Thrombocytopenia Platelets 117 Continue to monitor with CBC denies any bleeding BUN 24, creatinine 1.28 at baseline Continue to monitor Chronic: Hypertension Continue metoprolol 25 mg daily Hyperlipidemia Continue Lipitor 40 mg p.o. at bedtime BPH Continue Flomax 0.4 mg p.o. at bedtime GERD Continue omeprazole 20 mg daily F: none E: Replete as needed N: Heart healthy A: Fall precautions DVT prophylaxis: Eliquis 5 mg twice daily for afib The patient is admitted with an anticipated more than 2 midnight stay for evaluation of CHF exacerbation, A-fib with RVR, acute hypoxic respiratory failure secondary to influenza A CODE STATUS: Full code Discussed with: Patient Anticipated discharge place: Pending clinical course I have seen and evaluated the patient today. I Discussed the case with the resident and agree with the resident's findings I edited the assessment and plan as necessary as documented in the resident's note. Past Medical History Past Medical History: Atrial Fibrillation, Heart Failure, Diabetes Mellitus, Hypertension History of Any Multi-Drug Resistant Organisms: None Reported Additional Past Surgical History / Comment(s): shoulder sx Past Psychological History: No Psychological Hx Reported Smoking Status: Former smoker Medications and Allergies Home Medications Medication Instructions Recorded Confirmed Type Sacubitril/Valsartan [Entresto 24 1 each PO Q12H #30 tablet 05/11/21 04/06/24 Rx mg-26 mg Tablet] Amiodarone [Cordarone] 200 mg PO DAILY 04/04/24 04/06/24 History Apixaban [Eliquis] 5 mg PO BID 04/04/24 04/06/24 History Atorvastatin [Lipitor] 40 mg PO HS 04/04/24 04/06/24 History Empagliflozin [Jardiance] 25 mg PO DAILY 04/04/24 04/06/24 History Furosemide [Lasix] 40 mg PO DAILY PRN 04/04/24 04/06/24 History Insulin Aspart [NovoLOG Flexpen] 10 units SQ TID 04/04/24 04/06/24 History Insulin Detemir (Levemir) [Levemir] 45 unit SQ HS 04/04/24 04/06/24 History Magnesium Oxide [Mag-Ox] 400 mg PO DAILY 04/04/24 04/06/24 History Metoprolol Succinate [Metoprolol 25 mg PO DAILY 04/04/24 04/06/24 History Succinate ER] Multivitamins, Thera [Multivitamin 1 tab PO DAILY 04/04/24 04/06/24 History (formulary)] Omeprazole 20 mg PO DAILY 04/04/24 04/06/24 History Saw [place] (Unknown Dose) 1 tab PO DAILY 04/04/24 04/06/24 History Tamsulosin [Flomax] 0.4 mg PO HS 04/04/24 04/06/24 History Allergies Allergy/AdvReac Type Severity Reaction Status Date / Time Penicillins Allergy Rash/Hives Verified 11/14/24 20:32 Physical Exam Vitals: Vital Signs Temp Pulse Pulse Resp BP BP Pulse Ox 11/14/24 22:05 135 H 15 102/57 95 11/14/24 21:50 131 H 16 105/87 97 11/14/24 21:35 141 H 18 91/68 99 11/14/24 21:20 141 H 17 104/61 99 11/14/24 21:05 144 H 18 89/63 99 11/14/24 20:44 126 H 21 114/66 95 11/14/24 20:34 24 11/14/24 20:27 98.9 F 141 H 24 112/70 99 Intake and Output 11/14/24 11/14/24 11/14/24 06:59 14:59 22:59 Other: Weight 104.326 kg Results CBC & Chem 7: 11/14/24 20:43 11/14/24 20:43 Labs: Abnormal Lab Results - Last 24 Hours (Table) 11/14/24 11/14/24 11/14/24 Range/Units 20:43 20:43 20:43 MCV 103.9 H (80.0-100.0) fL Plt Count 117 L (150-450) k/uL Lymphocytes # 0.9 L (1.0-4.8) k/uL PT 14.0 H (10.0-12.5) sec INR 1.3 H (<1.2) Sodium 136 L (137-145) mmol/L Carbon Dioxide 16 L (22-30) mmol/L BUN 24 H (9-20) mg/dL Creatinine 1.28 H (0.66-1.25) mg/dL Glucose 212 H (74-99) mg/dL Plasma Lactic Acid Frantz (0.7-2.0) mmol/L Total Bilirubin 1.4 H (0.2-1.3) mg/dL Influenza Type A (PCR) (Not Detectd) 11/14/24 11/14/24 Range/Units 20:43 20:43 MCV (80.0-100.0) fL Plt Count (150-450) k/uL Lymphocytes # (1.0-4.8) k/uL PT (10.0-12.5) sec INR (<1.2) Sodium (137-145) mmol/L Carbon Dioxide (22-30) mmol/L BUN (9-20) mg/dL Creatinine (0.66-1.25) mg/dL Glucose (74-99) mg/dL Plasma Lactic Acid Frantz 4.0 H* (0.7-2.0) mmol/L Total Bilirubin (0.2-1.3) mg/dL Influenza Type A (PCR) Detected A (Not Detectd)
[2024-11-15] MEDS ORDERED: DEXTROSE 50% SYRINGE 50 ML IVP PRN ×2 (01:58)
[2024-11-15] MEDS: SACUBITRIL/VALSARTAN 24 MG-26 MG TABLET PO SCH (03:03)
[2024-11-15] MEDS: HEPARIN SOD,PORK IN 0.45% NACL 25,000 UNIT in 0.45% NACL 1 250ML.BAG IV SCH (03:08)
[2024-11-15] MEDS: HEPARIN SODIUM 1,000 UN/ML (10ML VL) IV ONE (03:08)
[2024-11-15 03:17] LABS: Glucose,Whole Blood 306 mg/dL (70-110)
[2024-11-15 03:36] LABS: Basophils % (A) 0 %; Eosinophils % (A) 1 %; HCT 44.7 % (39.0-53.0); HGB 14.7 gm/dL (13.0-17.5); Lymphocytes # (A) 0.2 k/uL (1.0-4.8); Lymphocytes % (A) 3 %; MCH 33.2 pg (25.0-35.0); MCHC 32.8 g/dL (31.0-37.0); MCV 101.3 fL (80.0-100.0); Macrocytosis Slight; Mean Platelet Volume 8.5; Monocytes # (A) 0.2 k/uL (0-1.0); Monocytes % (A) 3 %; Neutrophils # (A) 7.2 k/uL (1.3-7.7); Neutrophils % (A) 93 %; Platelet Count 163 k/uL (150-450); RBC 4.41 m/uL (4.30-5.90); RDW 13.6 % (11.5-15.5); WBC 7.7 k/uL (3.8-10.6)
--- NOTE | 2024-11-15 03:59 | P.CNPUL ---
History of Present Illness Consult date: 11/15/24 Requesting physician: Usha Becerra Reason for consult: other (Influenza A) Chief complaint: Shortness of breath History of present illness: Patient is a 69-year-old male with past medical history significant for atrial fibrillation, heart failure, diabetes mellitus, hypertension, hyperlipidemia,and obstructive sleep apnea with home CPAP. Brought into the emergency department by EMS late last night with a chief complaint of shortness of breath, cough and generalized weakness. Noted to be hypoxic with an SpO2 in the 70s when EMS arrived. Also, noted to be in atrial fibrillation with rapid ventricular response with a max rate of 140s per minute. Workup in the emergency department included chest x-ray which shows a stable cardiac silhouette, pulmonary vascular congestion.no obvious focal traits or pneumonia, no pleural effusions or pneumothoraces. Viral screen positive for influenza A. CBC: WBC count 8.5, hemoglobin 16.2, hematocrit 49.8, platelets 117. CMP: Sodium 136, potassium 4.2, chloride 102, serum bicarb 16, BUN 24, creatinine 1.28, glucose 212. Lactic elevated at 4. LFTs unremarkable. NT proBNP elevated at 6170. Troponin was 0.03 and now 0.045. EKG done on admission: Consistent with atrial fibrillation with rapid ventricular response, rate 136 bpm, no acute ischemic changes. Patient was started on IV amiodarone protocol in the emergency department. Patient is currently be evaluated in room 5. He is on 3 L/min nasal cannula. SpO2 is reading 95% on bedside monitor. Heart rhythm remains in atrial fibrillation, rate is better controlled around 80 to 90 bpm. Remains normotensive. Patient states that his roommates were sick with influenza earlier in the week. He started developing a mostly nonproductive cough approximately 48 hours ago. Denies any fevers, chills, sputum production, hemoptysis, chest pain. Appetite has been poor. Denies any nausea, vomiting, diarrhea. He has been generally weak, states he spent all day yesterday in bed. Patient states that he is scheduled for a cardiac ablation later this month. His fourth mate had stopped his amiodarone. Not currently on any diuretics. He denies any chest pain, heart palpitations, lightheadedness, syncopal events. No significant lower extremity edema noted. Denies any seeing any doses of Eliquis other than yesterday when he could not get out of bed. He was started on IV heparin infusion per cardiology recommendation. IV amiodarone continues at 1 mg/min. Patient did receive 1 dose of Lasix 40 mg IV in the ED. He does see Dr. Padilla in the pulmonary office for his obstructive sleep apnea, he was provided a APAP 7/15 cm H2O, and reports being mostly compliant wearing it 6 to 8 hours per night. He brought his CPAP and its at the bedside. Currently on Tamiflu twice daily. Review of Systems Constitutional: Reports fatigue, Reports poor appetite, Reports weakness, Denies chills, Denies fever, Denies weight gain, Denies weight loss Ears, nose, mouth and throat: Denies headache, Denies nasal congestion, Denies nasal discharge, Denies post-nasal drip, Denies sinus pain, Denies sinus pressure, Denies sore throat Cardiovascular: Reports dyspnea on exertion, Reports orthopnea, Denies lightheadedness, Denies palpitations, Denies paroxysmal nocturnal dyspnea, Denies syncope Respiratory: Reports as per HPI Gastrointestinal: Reports loss of appetite, Denies abdominal pain, Denies diarrhea, Denies nausea, Denies vomiting Genitourinary: Denies dysuria Musculoskeletal: Denies limitation of motion Integumentary: Denies rash Neurological: Denies seizures, Denies syncope Psychiatric: Denies anxiety, Denies depression Past Medical History Past Medical History: Atrial Fibrillation, Heart Failure, Diabetes Mellitus, Hypertension History of Any Multi-Drug Resistant Organisms: None Reported Additional Past Surgical History / Comment(s): shoulder sx Past Psychological History: No Psychological Hx Reported Smoking Status: Former smoker Medications and Allergies Home Medications Medication Instructions Recorded Confirmed Type Sacubitril/Valsartan [Entresto 24 1 each PO Q12H #30 tablet 05/11/21 04/06/24 Rx mg-26 mg Tablet] Amiodarone [Cordarone] 200 mg PO DAILY 04/04/24 04/06/24 History Apixaban [Eliquis] 5 mg PO BID 04/04/24 04/06/24 History Atorvastatin [Lipitor] 40 mg PO HS 04/04/24 04/06/24 History Empagliflozin [Jardiance] 25 mg PO DAILY 04/04/24 04/06/24 History Furosemide [Lasix] 40 mg PO DAILY PRN 04/04/24 04/06/24 History Insulin Aspart [NovoLOG Flexpen] 10 units SQ TID 04/04/24 04/06/24 History Insulin Detemir (Levemir) [Levemir] 45 unit SQ HS 04/04/24 04/06/24 History Magnesium Oxide [Mag-Ox] 400 mg PO DAILY 04/04/24 04/06/24 History Metoprolol Succinate [Metoprolol 25 mg PO DAILY 04/04/24 04/06/24 History Succinate ER] Multivitamins, Thera [Multivitamin 1 tab PO DAILY 04/04/24 04/06/24 History (formulary)] Omeprazole 20 mg PO DAILY 04/04/24 04/06/24 History Saw [place] (Unknown Dose) 1 tab PO DAILY 04/04/24 04/06/24 History Tamsulosin [Flomax] 0.4 mg PO HS 04/04/24 04/06/24 History Allergies Allergy/AdvReac Type Severity Reaction Status Date / Time Penicillins Allergy Rash/Hives Verified 11/14/24 20:32 Physical Exam Vitals: Vital Signs Temp Pulse Pulse Resp BP BP Pulse Ox 11/15/24 03:00 92 17 120/64 95 11/15/24 02:00 98 15 133/71 95 11/15/24 01:00 105 H 16 116/73 95 11/15/24 00:30 120 H 17 148/81 95 11/15/24 00:00 121 H 18 126/87 95 11/14/24 23:30 124 H 24 124/87 96 11/14/24 23:15 101 H 24 100/63 96 11/14/24 23:00 141 H 20 94/73 95 11/14/24 22:30 130 H 16 118/70 95 11/14/24 22:05 135 H 15 102/57 95 11/14/24 21:50 131 H 16 105/87 97 11/14/24 21:35 141 H 18 91/68 99 11/14/24 21:20 141 H 17 104/61 99 11/14/24 21:05 144 H 18 89/63 99 11/14/24 20:44 126 H 21 114/66 95 11/14/24 20:34 24 11/14/24 20:27 98.9 F 141 H 24 112/70 99 Intake and Output 11/14/24 11/14/24 11/15/24 14:59 22:59 06:59 Other: Weight 104.326 kg GENERAL EXAM: Alert, obese 69-year-old male, comfortable in no apparent distress. HEAD: Normocephalic and atraumatic EYES: Normal reaction of pupils, equal size. NOSE: Clear with pink turbinates. THROAT: No erythema or exudates. NECK: No masses, no JVD. CHEST: No chest wall deformity. LUNGS: Equal air entry with scattered rhonchi. On 3 L/min nasal cannula. No conversational dyspnea or accessory muscle use. CVS: S1 and S2 normal with no audible murmur, irregular rhythm. No extra heart sounds ABDOMEN: No hepatosplenomegaly, active bowel sounds, no guarding or rigidity. SPINE: No scoliosis or deformity SKIN: No rashes CENTRAL NERVOUS SYSTEM: No focal deficits, tone is normal in all 4 extremities. EXTREMITIES: There is no peripheral edema, clubbing, or cyanosis. Peripheral pulses are intact. Results - Laboratory Findings CBC and BMP: 11/15/24 03:11 11/14/24 20:43 PT/INR, D-dimer PT 14.0 sec (10.0-12.5) H 11/14/24 20:43 INR 1.3 (<1.2) H 11/14/24 20:43 Abnormal lab findings: Abnormal Labs 11/14/24 11/14/24 11/14/24 20:43 20:43 20:43 MCV 103.9 H Plt Count 117 L Lymphocytes # 0.9 L PT 14.0 H INR 1.3 H Sodium 136 L Carbon Dioxide 16 L BUN 24 H Creatinine 1.28 H Glucose 212 H POC Glucose (mg/dL) Plasma Lactic Acid Frantz Total Bilirubin 1.4 H Troponin I Influenza Type A (PCR) 11/14/24 11/14/24 11/14/24 20:43 20:43 23:45 MCV Plt Count Lymphocytes # PT INR Sodium Carbon Dioxide BUN Creatinine Glucose POC Glucose (mg/dL) Plasma Lactic Acid Frantz 4.0 H* Total Bilirubin Troponin I 0.045 H* Influenza Type A (PCR) Detected A 11/14/24 11/15/24 23:45 03:16 MCV Plt Count Lymphocytes # PT INR Sodium Carbon Dioxide BUN Creatinine Glucose POC Glucose (mg/dL) 306 H Plasma Lactic Acid Frantz 3.9 H* Total Bilirubin Troponin I Influenza Type A (PCR) - Diagnostic Findings Chest x-ray: image reviewed Assessment and Plan Assessment: Acute influenza A infection, started on Tamiflu twice daily Atrial fibrillation with rapid ventricular response, started on IV amiodarone protocol and heparin in the ED Acute systolic CHF exacerbation Acute hypoxemic respiratory failure, on 3 L/min nasal cannula, secondary to combination of above, chest x-ray showing stable cardiac silhouette with pulmonary vascular congestion. No infiltrates or evidence of pneumonia. No pleural effusions or pneumothoraces. NTproBNP significantly elevated at 6170. Elevated troponins, likely secondary to supply/demand mismatch and A-fib RVR Anion gap metabolic acidosis and lactic acidosis Hypertension History of hyperlipidemia History of heart failure with reduced ejection fraction, most recent available transesophageal echocardiogram from March, estimating a reduced left ventricular ejection fraction of 35 to 40%, no significant valvular abnormalities. Normally maintained on Entresto, beta-padmini, and Jardiance Diabetes mellitus, insulin-dependent Morbid obesity, with a BMI of 40 kg/m Obstructive sleep apnea, with home APAP and settings 7/15 cm H2O GERD Plan: Patient's medications, labs, chest x-ray reviewed Continue supplemental oxygen maintain oxygen saturation of 92% or greater Utilize home CPAP Patient previously started on IV amiodarone protocol, which is currently fusing at 1 mg/min. Also, heparinized on weight-based protocol per cardiology. Rate currently better controlled 80 to 90 bpm. Hold Eliquis well on IV heparin Recommending continuing Lasix 40 mg daily Continue Tamiflu twice daily for 5 days Monitor lactic acid GI prophylaxis: Protonix DVT prophylaxis: Deferred on IV heparin We will continue to follow I have personally seen and examined the patient, performed the documentation and the assessment and plan as written. Number of minutes spent on the visit:20 This dictation was produced using [employer] dictation software please excuse grammatical errors Time with Patient: Greater than 30
[2024-11-15 04:08] LABS: African American GFR (CKD) 51 (>60 ml/min/1.73 sqM); Anion Gap 15 mmol/L; Blood Urea Nitrogen 32 mg/dL (9-20); Calcium 8.4 mg/dL (8.4-10.2); Carbon Dioxide 19 mmol/L (22-30); Chloride 100 mmol/L (98-107); Glucose 327 mg/dL (74-99); Non-African American GFR(CKD) 44 (>60 ml/min/1.73 sqM); Sodium 134 mmol/L (137-145)
[2024-11-15] MEDS: AMIODARONE 450 MG in DEXTROSE 5% IN WATER 250 ML IV SCH (04:26)
[2024-11-15 08:40] LABS: Glucose,Whole Blood 263 mg/dL (70-110)
[2024-11-15] MEDS: FUROSEMIDE 40 MG TAB PO PRN (10:08)
[2024-11-15] MEDS: INSULIN ASPART (NovoLOG) 100 UNIT/ML VIAL SQ SCH (10:09)
[2024-11-15] MEDS: METOPROLOL SUCCINATE (ER) 25 MG TAB.ER.24H PO SCH (10:10)
[2024-11-15] MEDS: PANTOPRAZOLE 40 MG TABLET PO SCH (10:11)
[2024-11-15] MEDS: FUROSEMIDE 40 MG TAB PO SCH (10:28)
[2024-11-15 12:25] LABS: Glucose,Whole Blood 263 mg/dL (70-110)
--- NOTE | 2024-11-15 12:26 | CONS ---
CONSULTATION HISTORY OF PRESENT ILLNESS: This is a 69-year-old gentleman, with history of cardiomyopathy with moderate to severe LV systolic dysfunction, obstructive sleep apnea, insulin-dependent diabetes, hypertension, dyslipidemia, gastroesophageal reflux, who presented to the hospital with shortness of breath. His oxygenation was poor on his initial arrival with an O2 saturation of 70%. He was treated with DuoNeb and oxygen. The patient is diagnosed with influenza A and I have been consulted because of atrial fibrillation. He also has acute exacerbation of chronic systolic heart failure. He is treated with IV Lasix, amiodarone, and Tamiflu. At the time of my evaluation, the patient is sleeping, has CPAP on. Does not seem to be in respiratory distress. PAST MEDICAL HISTORY: Significant for: 1. Persistent atrial fibrillation. 2. Cardiomyopathy with congestive heart failure. 3. Obstructive sleep apnea. 4. Diabetes. 5. Hypertension. 6. Dyslipidemia. 7. GERD. MEDICATIONS: At home included: 1. Entresto. 2. Cordarone 200 mg daily. 3. Eliquis 5 b.i.d. 4. Lipitor 40 daily. 5. Jardiance. 6. Lasix. 7. Insulin. 8. Metoprolol. 9. Multivitamins. 10.Flomax. ALLERGIES: To penicillin. FAMILY HISTORY: Negative for premature coronary artery disease. SOCIAL HISTORY: Negative for current smoking, EtOH abuse, or drug abuse. REVIEW OF SYSTEMS: Not able to obtain from the patient who seems sleepy. PHYSICAL EXAMINATION: VITAL SIGNS: Afebrile, heart rate is 80 beats per minute, blood pressure is 117/60, respiratory rate is 18, O2 saturation is 91% on CPAP. NECK: There is no jugular venous distention. CHEST: Exam reveals occasional rhonchi bilaterally. HEART: Exam reveals first and second heart sounds. No gallop. ABDOMEN: Soft. EXTREMITIES: Exam of the extremities reveals mild edema. His troponins are mildly elevated at 0.04 and 0.04. Potassium is 4, creatinine is 1.5, hemoglobin is 14.7. EKG shows atrial fibrillation with poorly controlled ventricular rate. Heart rate is better controlled on the current medications that include Toprol and IV amiodarone. I am going to stop the IV amiodarone and switch him to oral amiodarone once he is more awake and alert. He is on IV Lasix. We will switch him to Eliquis. ASSESSMENT AND PLAN: 1. Persistent atrial fibrillation with rapid ventricular rate. 2. Acute exacerbation of chronic systolic heart failure. BNP is elevated at 6170. We will treat the patient with Lasix. 3. Elevated troponin - probably related to the flu-like illness, atrial fibrillation with rapid ventricular rate, and is not suggestive of myocardial infarction. MMODL / IJN: [id number] /
--- NOTE | 2024-11-15 13:32 | P.PN ---
Subjective Progress Note Date: 11/15/24 Patient is a 69 year old male with PMHx of HFrEF (EF of 35 to 40% on ARDEN from March 2024), paroxysmal Afib, obstructive sleep apnea, insulin-dependent diabetes mellitus, hypertension, hyperlipidemia, BPH and GERD who presented to the ED with chief complaint of shortness of breath. Upon arrival of EMS, patient was oxygenating in the 70s. He received a DuoNeb treatment and was placed on 4 L of oxygen. Patient reports he follows with Dr. Mcdonald and is supposed to have an ablation done on 11/[address] Sears for his A-fib. Additionally but patient follows with Dr. Padilla for his sleep apnea, but states he is not compliant with his CPAP. Patient reports that cardiology told him to discontinue his Lasix and amiodarone. Patient reports compliance with his Eliquis and other medications. Patient states the dyspnea started today and has been getting progressively worse, is worse with exertion, and he spent the entire day in bed today. Patient denies use of home oxygen. Patient does endorse orthopnea and states he requires 4 pillows at night. He is currently also endorsing a dry cough, runny nose, nasal congestion. Patient also reports that 2 days ago he had some bodyaches, nausea, fatigue, chills, some abdominal discomfort, and decreased oral intake. He states that his ex- and her who was with have both been sick with the flu. Patient denies fevers, vomiting, headaches, urinary or bowel complaints, or leg swelling. 11/15/2024 Patient seen and examined at bedside. No acute events overnight. Patient states his breathing is continued to improve since yesterday. Review of systems: Pertinent positives and negatives as discussed in HPI, a complete review of systems was performed and all other systems are negative. Physical examination: Vital signs reviewed General: nontoxic, non distressed, appears at stated age, obese Derm: warm, dry, intact Head: atraumatic, normocephalic, symmetric Eyes: anicteric sclera Mouth: no lip lesion, mucus membranes moist Cardiovascular: S1 S2 reg, no murmur Lungs: Diminished lung sounds at the bases bilaterally, expiratory wheezing, no rhonchi or rales Abdominal: soft, non-tender to palpation, nondistended Extremities: No cyanosis, clubbing, or pedal edema. 1+ nonpitting edema bila terally Neuro: Alert, Oriented to person, time and place, Gross neurological examination did not reveal any focal deficits. Cranial nerves II to XII grossly intact. Bilateral upper and lower extremity muscle strength intact and sensation intact. Psych: well appearing, appropriate affect Today's findings: Labs WBC 7.7, hemoglobin 14.7, platelets 163, sodium 134, potassium 4.0, bicarb 19, BUN 32, creatinine 1.55, glucose ranging [id number], lactic acid 2.0, troponin stable 0.045, procal 0.91 Assessment/Plan: Patient is a 69 year old male with PMHx of HFrEF (EF of 35 to 40% on ARDEN from March 2024), paroxysmal Afib, obstructive sleep apnea, insulin-dependent diabetes mellitus, hypertension, hyperlipidemia, BPH and GERD who presented to the ED with chief complaint of shortness of breath. Case was discussed with the ED physician and patient will be admitted to internal medicine service for CHF exacerbation, acute hypoxic respiratory failure, and A-fib with RVR. Active: Acute hypoxic respiratory failure secondary to Influenza A infection Influenza A positive Wean oxygen as tolerated to maintain oxygen saturations of greater than 94% DuoNebs 4 times daily and every 2 hours as needed Procalcitonin 0.91, elevated. Unlikely to be bacterial pneumonia Continue Tamiflu 75 mg every 12 hours x 5 days Pulmonology consulted Chronic HFrEF (ARDEN from March 2024 shows EF of 35 to 40%), not in exacerbation CXR shows mild cardiomegaly with mild central vascular congestion, no pleural effusions or pneumothorax Strict intake and output Daily weight Cardiac monitoring Begin Lasix 40 mg p.o. daily Continue Entresto 24 mg26 mg daily Obtain daily BMP and Magnesium levels Cardiology consult A-fib with RVR Patient was to undergo ablation on 11/22/2024 Initial EKG independently interpreted as A-fib with RVR, rate of 136 and QTc of 404, with no acute ST segment elevations or depressions Cardiac monitoring Continue amiodarone drip Eliquis on hold Continue Heparin drip for now Cardiology consult Elevated Creatinine Monitor for JULEE Creatinine 1.2 => 1.5 Monitor CMP Hyperglycemia in insulin-dependent diabetic Glucose on admission was 212 Holding Jardiance for now Accu-Cheks per ACHS protocol, Moderate insulin sliding scale Hypoglycemia precautions HbA1c pending levemir 50 units hs Lactic acidosis, likely secondary to dehydration, resolved Continue to monitor Thrombocytopenia, resolved Platelets 117 => 163, resolved Continue to monitor with CBC denies any bleeding Chronic: Hypertension -Continue metoprolol 25 mg daily Hyperlipidemia- Continue Lipitor 40 mg p.o. at bedtime BPH -Continue Flomax 0.4 mg p.o. at bedtime GERD - Continue omeprazole 20 mg daily F: none E: Replete as needed N: Heart healthy A: Fall precautions DVT prophylaxis: currently on heparin drip CODE STATUS: Full code Discussed with: Patient Anticipated discharge place: Pending clinical course I have seen and evaluated the patient today. I Discussed the case with the resident and agree with the resident's findings I edited the assessment and plan as necessary as documented in the resident's note. Objective - Vital Signs Vital signs: Vital Signs Temp 98.1 F 11/15/24 04:00 Pulse 80 11/15/24 04:00 Resp 18 11/15/24 04:00 BP 117/60 11/15/24 04:00 Pulse Ox 91 L 11/15/24 04:00 FiO2 Intake & Output 11/14/24 11/15/24 11/15/24 18:59 06:59 18:59 Output Total 1200 Balance -1200 Weight 104.326 kg Output: Urine 1200 - Labs CBC & Chem 7: 11/15/24 03:11 11/15/24 03:11 Labs: Abnormal Lab Results - Last 24 Hours (Table) 11/14/24 11/14/24 11/14/24 Range/Units 20:43 20:43 20:43 MCV 103.9 H (80.0-100.0) fL Plt Count 117 L (150-450) k/uL Lymphocytes # 0.9 L (1.0-4.8) k/uL PT 14.0 H (10.0-12.5) sec INR 1.3 H (<1.2) Sodium 136 L (137-145) mmol/L Carbon Dioxide 16 L (22-30) mmol/L BUN 24 H (9-20) mg/dL Creatinine 1.28 H (0.66-1.25) mg/dL Glucose 212 H (74-99) mg/dL POC Glucose (mg/dL) (70-110) mg/dL Plasma Lactic Acid Frantz (0.7-2.0) mmol/L Total Bilirubin 1.4 H (0.2-1.3) mg/dL Troponin I (0.000-0.034) ng/mL Influenza Type A (PCR) (Not Detectd) 11/14/24 11/14/24 11/14/24 Range/Units 20:43 20:43 23:45 MCV (80.0-100.0) fL Plt Count (150-450) k/uL Lymphocytes # (1.0-4.8) k/uL PT (10.0-12.5) sec INR (<1.2) Sodium (137-145) mmol/L Carbon Dioxide (22-30) mmol/L BUN (9-20) mg/dL Creatinine (0.66-1.25) mg/dL Glucose (74-99) mg/dL POC Glucose (mg/dL) (70-110) mg/dL Plasma Lactic Acid Frantz 4.0 H* (0.7-2.0) mmol/L Total Bilirubin (0.2-1.3) mg/dL Troponin I 0.045 H* (0.000-0.034) ng/mL Influenza Type A (PCR) Detected A (Not Detectd) 11/14/24 11/15/24 11/15/24 Range/Units 23:45 03:11 03:11 MCV 101.3 H (80.0-100.0) fL Plt Count (150-450) k/uL Lymphocytes # 0.2 L (1.0-4.8) k/uL PT (10.0-12.5) sec INR (<1.2) Sodium (137-145) mmol/L Carbon Dioxide (22-30) mmol/L BUN (9-20) mg/dL Creatinine (0.66-1.25) mg/dL Glucose (74-99) mg/dL POC Glucose (mg/dL) (70-110) mg/dL Plasma Lactic Acid Frantz 3.9 H* (0.7-2.0) mmol/L Total Bilirubin (0.2-1.3) mg/dL Troponin I 0.045 H* (0.000-0.034) ng/mL Influenza Type A (PCR) (Not Detectd) 11/15/24 11/15/24 Range/Units 03:11 03:16 MCV (80.0-100.0) fL Plt Count (150-450) k/uL Lymphocytes # (1.0-4.8) k/uL PT (10.0-12.5) sec INR (<1.2) Sodium 134 L (137-145) mmol/L Carbon Dioxide 19 L (22-30) mmol/L BUN 32 H (9-20) mg/dL Creatinine 1.55 H (0.66-1.25) mg/dL Glucose 327 H (74-99) mg/dL POC Glucose (mg/dL) 306 H (70-110) mg/dL Plasma Lactic Acid Rfantz (0.7-2.0) mmol/L Total Bilirubin (0.2-1.3) mg/dL Troponin I (0.000-0.034) ng/mL Influenza Type A (PCR) (Not Detectd)
[2024-11-15 16:40] LABS: Glucose,Whole Blood 201 mg/dL (70-110)
[2024-11-15 19:57] LABS: Glucose,Whole Blood 179 mg/dL (70-110)
[2024-11-15] MEDS: INSULIN DETEMIR (LEVEMIR) 100 UNIT/ML SYR SQ SCH (20:09)
[2024-11-15] MEDS: TAMSULOSIN 0.4 MG CAP.ER.24H PO SCH (20:09)
[2024-11-15] MEDS: ATORVASTATIN 40 MG TAB PO SCH (20:09)
[2024-11-15] MEDS: OSELTAMIVIR 30 MG CAP PO SCH (20:12)
[2024-11-16 01:34] LABS: Glucose,Whole Blood 77 mg/dL (70-110)
[2024-11-16 03:21] LABS: Glucose,Whole Blood 73 mg/dL (70-110)
[2024-11-16 06:05] LABS: Glucose,Whole Blood 90 mg/dL (70-110)
[2024-11-16 07:11] LABS: Basophils % (A) 0 %; Eosinophils % (A) 0 %; HCT 52.6 % (39.0-53.0); HGB 17.3 gm/dL (13.0-17.5); Lymphocytes # (A) 0.8 k/uL (1.0-4.8); Lymphocytes % (A) 8 %; MCH 33.2 pg (25.0-35.0); MCHC 32.8 g/dL (31.0-37.0); Mean Platelet Volume 8.1; Monocytes # (A) 0.4 k/uL (0-1.0); Monocytes % (A) 4 %; Neutrophils # (A) 9.1 k/uL (1.3-7.7); Neutrophils % (A) 87 %; Platelet Count 170 k/uL (150-450); RBC 5.21 m/uL (4.30-5.90); WBC 10.5 k/uL (3.8-10.6)
[2024-11-16 07:37] LABS: ALT 39 U/L (4-49); AST 91 U/L (17-59); African American GFR (CKD) 58 (>60 ml/min/1.73 sqM); Albumin 3.9 g/dL (3.5-5.0); Alkaline Phosphatase 69 U/L (38-126); Anion Gap 7 mmol/L; Blood Urea Nitrogen 41 mg/dL (9-20); Calcium 8.9 mg/dL (8.4-10.2); Carbon Dioxide 29 mmol/L (22-30); Chloride 101 mmol/L (98-107); Glucose 58 mg/dL (74-99); Magnesium 2.4 mg/dL (1.6-2.3); Non-African American GFR(CKD) 50 (>60 ml/min/1.73 sqM); Potassium 4.2 mmol/L (3.5-5.1); Sodium 137 mmol/L (137-145); Total Bilirubin 0.8 mg/dL (0.2-1.3); Total Protein 6.5 g/dL (6.3-8.2)
[2024-11-16] MEDS: ACETAMINOPHEN TAB 325 MG TAB PO PRN (08:55)
[2024-11-16] MEDS: FUROSEMIDE 20 MG TAB PO SCH (08:55)
[2024-11-16] MEDS: APIXABAN 5 MG TAB PO SCH (09:54)
[2024-11-16] MEDS: SODIUM CHLORIDE 0.9% 500 ML 500 ML IV ONE (11:08)
[2024-11-16 11:54] LABS: Glucose,Whole Blood 141 mg/dL (70-110)
[2024-11-16] MEDS ORDERED: IPRATROPIUM-ALBUTEROL 3 ML NEB INHALATION SCH (12:00)
--- NOTE | 2024-11-16 13:01 | P.PN ---
Subjective HISTORY OF PRESENT ILLNESS: This is a 69-year-old male who is admitted to the hospital secondary to congestive heart failure, hypoxic respiratory failure, and influenza A. Patient examined this morning at the bedside. Patient remains in atrial fibrillation with a heart in the 90s. He currently denies chest pain or pressure. He denies shortness of breath. Vital signs are stable. PHYSICAL EXAM: VITAL SIGNS: Reviewed. GENERAL: Well-developed in no acute distress. NECK: Supple. No JVD or thyromegaly LUNGS: Respirations even and unlabored. Lungs essentially clear to auscultation bilaterally. HEART: Irregular rate and rhythm. S1 and S2 heard. EXTREMITIES: Normal range of motion. No clubbing or cyanosis. Peripheral pulses intact. 1+ bilateral lower extremity edema ASSESSMENT: Shortness of breath Acute influenza A Acute on chronic heart failure with reduced EF, 35 to 40% Paroxysmal atrial fibrillation with RVR, currently rate controlled Elevated troponin, type II PA secondary to oxygen supply/demand mismatch PLAN: No oral amio at this time if possible as patient is supposed to have ablation in the near future Continue current cardiac medications Discontinue IV heparin. Resume Eliquis, Blood pressure stable with MAP greater than 65. No need for IV fluid bolus this morning; especially considering patient is here with CHF and has hx of cardiomyopathy Further recommendations pending patient course Nurse practitioner note has been reviewed by physician. Signing provider agrees with the documented findings, assessment, and plan of care documented by D[employer]IT[employer]ER READER as a scribe. Objective - Vital Signs Vital signs: Vital Signs Temp 98.2 F 11/16/24 11:35 Pulse 76 11/16/24 11:35 Resp 17 11/16/24 11:35 BP 92/53 11/16/24 11:35 Pulse Ox 97 11/16/24 11:35 FiO2 Intake & Output 11/15/24 11/16/24 11/16/24 18:59 06:59 18:59 Intake Total 81.667 373.707 180 Balance 81.667 373.707 180 Weight 104.326 kg 104.5 kg Intake: Intake, IV Titration 81.667 373.707 Amount Amiodarone 450 mg In 250 Dextrose 5% in Water 250 ml @ 0.5 MG/MIN 16.667 mls/hr IV .Q15H [facility] Rx#: [id number] Heparin Sod,Pork in 0.45% 81.667 123.707 NaCl 25,000 unit In 0.45 % NaCl 1 250ml.bag @ 9. 585 UNITS/KG/HR 10 mls/hr IV .Q24H [facility] Rx#: [id number] Oral 180 Other: Voiding Method External Catheter Urinal Urinal - Labs CBC & Chem 7: 11/16/24 06:36 11/16/24 06:36 Labs: Abnormal Lab Results - Last 24 Hours (Table) 11/15/24 11/15/24 11/15/24 Range/Units 16:37 17:17 19:52 MCV (80.0-100.0) fL Neutrophils # (1.3-7.7) k/uL Lymphocytes # (1.0-4.8) k/uL APTT 46.8 H (22.0-30.0) sec BUN (9-20) mg/dL Creatinine (0.66-1.25) mg/dL Glucose (74-99) mg/dL POC Glucose (mg/dL) 201 H 179 H (70-110) mg/dL Hemoglobin A1c (<=6.0) % Magnesium (1.6-2.3) mg/dL AST (17-59) U/L 11/16/24 11/16/24 11/16/24 Range/Units 06:36 06:36 06:36 MCV 101.0 H (80.0-100.0) fL Neutrophils # 9.1 H (1.3-7.7) k/uL Lymphocytes # 0.8 L (1.0-4.8) k/uL APTT 43.5 H (22.0-30.0) sec BUN (9-20) mg/dL Creatinine (0.66-1.25) mg/dL Glucose (74-99) mg/dL POC Glucose (mg/dL) (70-110) mg/dL Hemoglobin A1c 8.1 H (<=6.0) % Magnesium (1.6-2.3) mg/dL AST (17-59) U/L 11/16/24 11/16/24 Range/Units 06:36 11:52 MCV (80.0-100.0) fL Neutrophils # (1.3-7.7) k/uL Lymphocytes # (1.0-4.8) k/uL APTT (22.0-30.0) sec BUN 41 H (9-20) mg/dL Creatinine 1.40 H (0.66-1.25) mg/dL Glucose 58 L (74-99) mg/dL POC Glucose (mg/dL) 141 H (70-110) mg/dL Hemoglobin A1c (<=6.0) % Magnesium 2.4 H (1.6-2.3) mg/dL AST 91 H (17-59) U/L
[2024-11-16] MEDS: IPRATROPIUM-ALBUTEROL 3 ML NEB INHALATION PRN (13:56)
--- NOTE | 2024-11-16 14:47 | P.PN ---
Subjective Progress Note Date: 11/16/24 Principal diagnosis: Shortness of breath. Patient is a 69-year-old male with past medical history significant for atrial fibrillation, heart failure, diabetes mellitus, hypertension, hyperlipidemia,and obstructive sleep apnea with home CPAP. Brought into the emergency department by EMS late last night with a chief complaint of shortness of breath, cough and generalized weakness. Noted to be hypoxic with an SpO2 in the 70s when EMS arrived. Also, noted to be in atrial fibrillation with rapid ventricular response with a max rate of 140s per minute. Workup in the emergency department included chest x-ray which shows a stable cardiac silhouette, pulmonary vascular congestion.no obvious focal traits or pneumonia, no pleural effusions or pneumothoraces. Viral screen positive for influenza A. CBC: WBC count 8.5, hemoglobin 16.2, hematocrit 49.8, platelets 117. CMP: Sodium 136, potassium 4.2, chloride 102, serum bicarb 16, BUN 24, creatinine 1.28, glucose 212. Lact ic elevated at 4. LFTs unremarkable. NT proBNP elevated at 6170. Troponin was 0.03 and now 0.045. EKG done on admission: Consistent with atrial fibrillation with rapid ventricular response, rate 136 bpm, no acute ischemic changes. Patient was started on IV amiodarone protocol in the emergency department. Patient is currently be evaluated in room 5. He is on 3 L/min nasal cannula. SpO2 is reading 95% on bedside monitor. Heart rhythm remains in atrial fibrillation, rate is better controlled around 80 to 90 bpm. Remains normotensive. Patient states that his roommates were sick with influenza earlier in the week. He started developing a mostly nonproductive cough approximately 48 hours ago. Denies any fevers, chills, sputum production, hemoptysis, chest pain. Appetite has been poor. Denies any nausea, vomiting, diarrhea. He has been generally weak, states he spent all day yesterday in bed. Patient states that he is scheduled for a cardiac ablation later this month. His commercial loan specialist had stopped his amiodarone. Not currently on any diuretics. He denies any chest pain, heart palpitations, lightheadedness, syncopal events. No significant lower extremity edema noted. Denies any seeing any doses of Eliquis other than yesterday when he could not get out of bed. He was started on IV heparin infusion per cardiology recommendation. IV amiodarone continues at 1 mg/min. Patient did receive 1 dose of Lasix 40 mg IV in the ED. He does see Dr. Padilla in the pulmonary office for his obstructive sleep apnea, he was provided a APAP 7/15 cm H2O, and reports being mostly compliant wearing it 6 to 8 hours per night. He brought his CPAP and its at the bedside. Currently on Tamiflu twice daily. Progress note dated November 16, 2024. 69-year-old male seen today in room 378. He is currently doing reasonably well. He is on room air. He is not receiving any IV fluids. He did test positive for influenza A, was started on Tamiflu. In addition, initially, he developed atrial fibrillation with RVR. That is resolved. Clinically, he looks well. He sitting in the chair, next to the hospital bed. He is on room air. He has no specific complaints today. Current labs include a white count 10.5, hemoglobin 17.3, hematocrit 52.6, platelet count of 170,000. PTT was 43.5, with a sodium 137, potassium 4.2, chlorides 101, CO2 29, BUN 41, and creatinine 1.40. Glucose was 141. Objective - Vital Signs Vital signs: Vital Signs Temp 98.2 F 11/16/24 11:35 Pulse 78 11/16/24 14:07 Resp 18 11/16/24 14:07 BP 92/53 11/16/24 11:35 Pulse Ox 98 11/16/24 13:57 FiO2 Intake & Output 11/15/24 11/16/24 11/16/24 18:59 06:59 18:59 Intake Total 81.667 373.707 360 Balance 81.667 373.707 360 Weight 104.326 kg 104.5 kg Intake: Intake, IV Titration 81.667 373.707 Amount Amiodarone 450 mg In 250 Dextrose 5% in Water 250 ml @ 0.5 MG/MIN 16.667 mls/hr IV .Q15H KEVIN Rx#: [id number] Heparin Sod,Pork in 0.45% 81.667 123.707 NaCl 25,000 unit In 0.45 % NaCl 1 250ml.bag @ 9. 585 UNITS/KG/HR 10 mls/hr IV .Q24H KEVIN Rx#: [id number] Oral 360 Other: Voiding Method External Catheter Urinal Urinal - Exam No acute distress, oriented 3. Currently sitting in the chair next to the hospital bed. He is currently on room air. HEENT examination is grossly unremarkable. Mucous membranes are moist. No oral lesions. Neck supple. Full range of motion. No adenopathy thyromegaly or neck vein distention. Cardiovascular examination reveals an irregular rhythm and rate. S1-S2 normal. No S3 or S4. No discernible murmur noted. Lungs reveal mostly normal breath sounds. Occasional scattered rhonchi noted. No wheezes. No crackles. Abdomen soft bowel sounds are heard. No masses or tenderness. Extremities are intact. No cyanosis clubbing or edema. Skin is without rash or lesion. Neurologic examination is brief but nonfocal. - Labs CBC & Chem 7: 11/16/24 06:36 11/16/24 06:36 Labs: Abnormal Lab Results - Last 24 Hours (Table) 11/15/24 11/15/24 11/15/24 Range/Units 16:37 17:17 19:52 MCV (80.0-100.0) fL Neutrophils # (1.3-7.7) k/uL Lymphocytes # (1.0-4.8) k/uL APTT 46.8 H (22.0-30.0) sec BUN (9-20) mg/dL Creatinine (0.66-1.25) mg/dL Glucose (74-99) mg/dL POC Glucose (mg/dL) 201 H 179 H (70-110) mg/dL Hemoglobin A1c (<=6.0) % Magnesium (1.6-2.3) mg/dL AST (17-59) U/L 11/16/24 11/16/24 11/16/24 Range/Units 06:36 06:36 06:36 MCV 101.0 H (80.0-100.0) fL Neutrophils # 9.1 H (1.3-7.7) k/uL Lymphocytes # 0.8 L (1.0-4.8) k/uL APTT 43.5 H (22.0-30.0) sec BUN (9-20) mg/dL Creatinine (0.66-1.25) mg/dL Glucose (74-99) mg/dL POC Glucose (mg/dL) (70-110) mg/dL Hemoglobin A1c 8.1 H (<=6.0) % Magnesium (1.6-2.3) mg/dL AST (17-59) U/L 11/16/24 11/16/24 Range/Units 06:36 11:52 MCV (80.0-100.0) fL Neutrophils # (1.3-7.7) k/uL Lymphocytes # (1.0-4.8) k/uL APTT (22.0-30.0) sec BUN 41 H (9-20) mg/dL Creatinine 1.40 H (0.66-1.25) mg/dL Glucose 58 L (74-99) mg/dL POC Glucose (mg/dL) 141 H (70-110) mg/dL Hemoglobin A1c (<=6.0) % Magnesium 2.4 H (1.6-2.3) mg/dL AST 91 H (17-59) U/L Assessment and Plan Assessment: Acute influenza A infection. Atrial fibrillation with rapid ventricular response. Acute systolic CHF exacerbation. Acute hypoxemic respiratory failure, on 3 L/min nasal cannula. Elevated troponins, likely secondary to supply/demand mismatch and A-fib RVR. Anion gap metabolic acidosis and lactic acidosis. Hypertension. History of hyperlipidemia. History of heart failure with reduced ejection fraction. Diabetes mellitus, insulin-dependent. Morbid obesity, with a BMI of 40 kg/m. Obstructive sleep apnea. Plan: Plan dated November 16, 2024. The patient is seen today in room 378. The patient appears to be relatively comfortable. He is on room air. Is not receiving any IV fluids. He still has atrial fibrillation with a controlled response rate. He is on Tamiflu for his current influenza infection. We will continue to follow the patient, make recommendations along the way. The patient's overall prognosis remains reasonable. Labs, x-rays, and all medications have been reviewed on this patient. Time with Patient: Less than 30
--- NOTE | 2024-11-16 15:44 | P.PN ---
Subjective Progress Note Date: 11/16/24 Patient is a 69 year old male with PMHx of HFrEF (EF of 35 to 40% on ARDEN from March 2024), paroxysmal Afib, obstructive sleep apnea, insulin-dependent diabetes mellitus, hypertension, hyperlipidemia, BPH and GERD who presented to the ED with chief complaint of shortness of breath. Upon arrival of EMS, patient was oxygenating in the 70s. He received a DuoNeb treatment and was placed on 4 L of oxygen. Patient reports he follows with Dr. Mcdonald and is supposed to have an ablation done on 11/[address] Sears for his A-fib. Additionally but patient follows with Dr. Padilla for his sleep apnea, but states he is not compliant with his CPAP. Patient reports that cardiology told him to discontinue his Lasix and amiodarone. Patient reports compliance with his Eliquis and other medications. Patient states the dyspnea started today and has been getting progressively worse, is worse with exertion, and he spent the entire day in bed today. Patient denies use of home oxygen. Patient does endorse orthopnea and states he requires 4 pillows at night. He is currently also endorsing a dry cough, runny nose, nasal congestion. Patient also reports that 2 days ago he had some bodyaches, nausea, fatigue, chills, some abdominal discomfort, and decreased oral intake. He states that his ex- and her who was with have both been sick with the flu. Patient denies fevers, vomiting, headaches, urinary or bowel complaints, or leg swelling. 11/15/2024 Patient seen and examined at bedside. No acute events overnight. Patient states his breathing is continued to improve since yesterday. 11/16/2024 Patient seen and examined at bedside. No acute events overnight. Breathing improving. Using 2 L of oxygen intermittently. Heparin and amiodarone discontinued. Home Eliquis continued. Likely discharge tomorrow. Review of systems: Pertinent positives and negatives as discussed in HPI, a complete review of systems was performed and all other systems are negative. Physical examination: Vital signs reviewed General: nontoxic, non distressed, appears at stated age, obese Derm: warm, dry, intact Head: atraumatic, normocephalic, symmetric Eyes: anicteric sclera Mouth: no lip lesion, mucus membranes moist Cardiovascular: S1 S2 reg, no murmur Lungs: Mild expiratory wheezing, no rhonchi or rales Abdominal: soft, non-tender to palpation, nondistended Extremities: No cyanosis, clubbing, or pedal edema. 1+ nonpitting edema bilaterally Neuro: Alert, Oriented to person, time and place, Gross neurological examination did not reveal any focal deficits. Cranial nerves II to XII grossly intact. Bilateral upper and lower extremity muscle strength intact and sensation intact. Psych: well appearing, appropriate affect Today's findings: Labs WBC 10.5, BUN 41, creatinine 1.4, magnesium 2.4, AST 91 Assessment/Plan: Patient is a 69 year old male with PMHx of HFrEF (EF of 35 to 40% on ARDEN from March 2024), paroxysmal Afib, obstructive sleep apnea, insulin-dependent diabetes mellitus, hypertension, hyperlipidemia, BPH and GERD who presented to the ED with chief complaint of shortness of breath. Case was discussed with the ED physician and patient will be admitted to internal medicine service for CHF exacerbation, acute hypoxic respiratory failure, and A-fib with RVR. Active: Acute hypoxic respiratory failure secondary to Influenza A infection Influenza A positive Wean oxygen as tolerated to maintain oxygen saturations of greater than 94% DuoNebs 4 times daily Procalcitonin 0.91, elevated. Unlikely to be bacterial pneumonia Continue Tamiflu 30 mg twice daily, renal dosing per pharmacy Pulmonology following Chronic HFrEF (ARDEN from March 2024 shows EF of 35 to 40%), not in exacerbation CXR shows mild cardiomegaly with mild central vascular congestion, no pleural effusions or pneumothorax Strict intake and output Daily weight Cardiac monitoring Begin Lasix 20 mg p.o. daily Continue Entresto 24 mg26 mg daily Obtain daily BMP and Magnesium levels Cardiology following A-fib with RVR Patient was to undergo ablation on 11/22/2024 Initial EKG independently interpreted as A-fib with RVR, rate of 136 and QTc of 404, with no acute ST segment elevations or depressions Cardiac monitoring Amiodarone and Heparin discontinued Continue Eliquis Cardiology following CKD stage IIIa Monitor for JULEE Creatinine 1.2 => 1.5 => 1.4 Monitor CMP Hyperglycemia in insulin-dependent diabetic Glucose on admission was 212 Holding Jardiance for now Accu-Cheks per ACHS protocol, Moderate insulin sliding scale Hypoglycemia precautions HbA1c 8.1% levemir 40 units hs Lactic acidosis, likely secondary to dehydration, resolved Continue to monitor Thrombocytopenia, resolved Platelets 117 => 163, resolved Continue to monitor with CBC denies any bleeding Chronic: Hypertension -Continue metoprolol 25 mg daily Hyperlipidemia- Continue Lipitor 40 mg p.o. at bedtime BPH -Continue Flomax 0.4 mg p.o. at bedtime GERD - Continue omeprazole 20 mg daily F: none E: Replete as needed N: Heart healthy A: Fall precautions DVT prophylaxis: Eliquis 5 mg twice daily CODE STATUS: Full code Discussed with: Patient Anticipated discharge place and time: Home, tomorrow I have seen and evaluated the patient today. I Discussed the case with the resident and agree with the resident's findings I edited the assessment and plan as necessary as documented in the resident's note. Objective - Vital Signs Vital signs: Vital Signs Temp 97.9 F 11/16/24 03:01 Pulse 59 L 11/16/24 03:01 Resp 18 11/16/24 03:01 BP 93/53 11/16/24 03:01 Pulse Ox 95 11/16/24 03:01 FiO2 Intake & Output 11/15/24 11/16/24 11/16/24 18:59 06:59 18:59 Intake Total 81.667 373.707 Balance 81.667 373.707 Weight 104.326 kg 104.5 kg Intake: Intake, IV Titration 81.667 373.707 Amount Amiodarone 450 mg In 250 Dextrose 5% in Water 250 ml @ 0.5 MG/MIN 16.667 mls/hr IV .Q15H KEVIN Rx#: [id number] Heparin Sod,Pork in 0.45% 81.667 123.707 NaCl 25,000 unit In 0.45 % NaCl 1 250ml.bag @ 9. 585 UNITS/KG/HR 10 mls/hr IV .Q24H KEVIN Rx#: [id number] Other: Voiding Method External Catheter Urinal - Labs CBC & Chem 7: 11/16/24 06:36 11/16/24 06:36 Labs: Abnormal Lab Results - Last 24 Hours (Table) 11/15/24 11/15/24 11/15/24 Range/Units 03:11 08:39 09:49 MCV (80.0-100.0) fL Neutrophils # (1.3-7.7) k/uL Lymphocytes # (1.0-4.8) k/uL APTT 82.3 H (22.0-30.0) sec BUN (9-20) mg/dL Creatinine (0.66-1.25) mg/dL Glucose (74-99) mg/dL POC Glucose (mg/dL) 263 H (70-110) mg/dL Magnesium (1.6-2.3) mg/dL AST (17-59) U/L Procalcitonin 0.91 H (0.02-0.50) ng/mL 11/15/24 11/15/24 11/15/24 Range/Units 12:24 16:37 17:17 MCV (80.0-100.0) fL Neutrophils # (1.3-7.7) k/uL Lymphocytes # (1.0-4.8) k/uL APTT 46.8 H (22.0-30.0) sec BUN (9-20) mg/dL Creatinine (0.66-1.25) mg/dL Glucose (74-99) mg/dL POC Glucose (mg/dL) 263 H 201 H (70-110) mg/dL Magnesium (1.6-2.3) mg/dL AST (17-59) U/L Procalcitonin (0.02-0.50) ng/mL 11/15/24 11/16/24 11/16/24 Range/Units 19:52 06:36 06:36 MCV 101.0 H (80.0-100.0) fL Neutrophils # 9.1 H (1.3-7.7) k/uL Lymphocytes # 0.8 L (1.0-4.8) k/uL APTT (22.0-30.0) sec BUN 41 H (9-20) mg/dL Creatinine 1.40 H (0.66-1.25) mg/dL Glucose 58 L (74-99) mg/dL POC Glucose (mg/dL) 179 H (70-110) mg/dL Magnesium 2.4 H (1.6-2.3) mg/dL AST 91 H (17-59) U/L Procalcitonin (0.02-0.50) ng/mL
[2024-11-16 16:27] LABS: Glucose,Whole Blood 213 mg/dL (70-110)
[2024-11-16 20:10] LABS: Glucose,Whole Blood 249 mg/dL (70-110)
[2024-11-16] MEDS: INSULIN DETEMIR (LEVEMIR) 100 UNIT/ML SYR SQ SCH (21:14)
[2024-11-17 04:15] LABS: Glucose,Whole Blood 78 mg/dL (70-110)
[2024-11-17 05:56] LABS: Glucose,Whole Blood 99 mg/dL (70-110)
[2024-11-17 06:28] LABS: Basophils % (A) 0 %; Eosinophils % (A) 1 %; HCT 48.1 % (39.0-53.0); HGB 15.5 gm/dL (13.0-17.5); Lymphocytes # (A) 0.6 k/uL (1.0-4.8); Lymphocytes % (A) 15 %; MCH 32.5 pg (25.0-35.0); MCHC 32.3 g/dL (31.0-37.0); MCV 100.8 fL (80.0-100.0); Mean Platelet Volume 8.4; Monocytes # (A) 0.3 k/uL (0-1.0); Monocytes % (A) 7 %; Neutrophils # (A) 3.1 k/uL (1.3-7.7); Neutrophils % (A) 75 %; Platelet Count 133 k/uL (150-450); RBC 4.77 m/uL (4.30-5.90); WBC 4.1 k/uL (3.8-10.6)
[2024-11-17 07:15] LABS: ALT 38 U/L (4-49); African American GFR (CKD) 76 (>60 ml/min/1.73 sqM); Albumin 3.3 g/dL (3.5-5.0); Anion Gap 8 mmol/L; Blood Urea Nitrogen 37 mg/dL (9-20); Calcium 8.6 mg/dL (8.4-10.2); Carbon Dioxide 28 mmol/L (22-30); Chloride 101 mmol/L (98-107); Glucose 73 mg/dL (74-99); Non-African American GFR(CKD) 66 (>60 ml/min/1.73 sqM); Sodium 137 mmol/L (137-145); Total Bilirubin 0.8 mg/dL (0.2-1.3); Total Protein 5.6 g/dL (6.3-8.2)
[2024-11-17 07:47] LABS: AST 62 U/L (17-59); Alkaline Phosphatase 53 U/L (38-126); Magnesium 2.2 mg/dL (1.6-2.3); Potassium 4.3 mmol/L (3.5-5.1)
[2024-11-17 09:02] VITALS: BP 105/61; PULSE 90; RESP 18; TEMP 97
--- NOTE | 2024-11-17 10:52 | P.PN ---
Subjective HISTORY OF PRESENT ILLNESS: This is a 69-year-old male who is admitted to the hospital secondary to congestive heart failure, hypoxic respiratory failure, and influenza A. Patient examined this morning at the bedside. Patient remains in atrial fibrillation with a heart in the 90s. He currently denies chest pain or pressure. He denies shortness of breath. Vital signs are stable. 11/17/2024 Patient examined this morning at the bedside. Patient currently denies any chest pain or pressure. He denies any shortness of breath. Vital signs are stable. PHYSICAL EXAM: VITAL SIGNS: Reviewed. GENERAL: Well-developed in no acute distress. NECK: Supple. No JVD or thyromegaly LUNGS: Respirations even and unlabored. Lungs essentially clear to auscultation bilaterally. HEART: Irregular rate and rhythm. S1 and S2 heard. EXTREMITIES: Normal range of motion. No clubbing or cyanosis. Peripheral pulses intact. 1+ bilateral lower extremity edema ASSESSMENT: Shortness of breath Acute influenza A Acute on chronic heart failure with reduced EF, 35 to 40% Paroxysmal atrial fibrillation with RVR, currently rate controlled Elevated troponin, type II ID secondary to oxygen supply/demand mismatch PLAN: No oral amio at this time as patient is supposed to have ablation in the near future Continue current cardiac medications Patient is stable for discharge home today from a cardiac standpoint Case discussed with Dr. Sears yesterday. Patient's ablation will be rescheduled in the near future. Nurse practitioner note has been reviewed by physician. Signing provider agrees with the documented findings, assessment, and plan of care documented by [employer] as a scribe. Objective - Vital Signs Vital signs: Vital Signs Temp 97.0 F L 11/17/24 08:32 Pulse 90 11/17/24 08:33 Resp 18 11/17/24 08:32 BP 105/61 11/17/24 08:32 Pulse Ox 95 11/17/24 08:32 FiO2 Intake & Output 11/16/24 11/17/24 11/17/24 18:59 06:59 18:59 Intake Total 478 190 Balance 478 190 Weight 105.2 kg Intake: IV 10 Invasive Line 3 10 Oral 478 180 Other: Voiding Method Urinal Urinal Urinal - Labs CBC & Chem 7: 11/17/24 05:25 11/17/24 05:25 Labs: Abnormal Lab Results - Last 24 Hours (Table) 11/16/24 11/16/24 11/16/24 Range/Units 11:52 16:25 20:09 MCV (80.0-100.0) fL Plt Count (150-450) k/uL Lymphocytes # (1.0-4.8) k/uL BUN (9-20) mg/dL Glucose (74-99) mg/dL POC Glucose (mg/dL) 141 H 213 H 249 H (70-110) mg/dL AST (17-59) U/L Total Protein (6.3-8.2) g/dL Albumin (3.5-5.0) g/dL 11/17/24 11/17/24 Range/Units 05:25 05:25 MCV 100.8 H (80.0-100.0) fL Plt Count 133 L (150-450) k/uL Lymphocytes # 0.6 L (1.0-4.8) k/uL BUN 37 H (9-20) mg/dL Glucose 73 L (74-99) mg/dL POC Glucose (mg/dL) (70-110) mg/dL AST 62 H (17-59) U/L Total Protein 5.6 L (6.3-8.2) g/dL Albumin 3.3 L (3.5-5.0) g/dL
--- NOTE | 2024-11-17 17:41 | P.DS ---
Providers Date of admission: 11/14/24 22:53 Expected date of discharge: 11/17/24 Attending physician: Sachin Appiah MD Consults: 11/14/24 22:50 Consult Physician Urgent Consulting Provider: Socrates Loera Consult Reason/Comments: acute hypoxic resp failure, influenza a Do you want consulting provider notified?: Yes Consult Physician Urgent Consulting Provider: [facility] Consult Reason/Comments: afib with rvr, aechf Do you want consulting provider notified?: Yes Primary care physician: [facility] Hospital Course: Discharge diagnoses; Acute hypoxic respiratory failure secondary to Influenza A infection Chronic HFrEF (ARDEN from March 2024 shows EF of 35 to 40%), not in exacerbation A-fib with RVR CKD stage IIIa Hyperglycemia in insulin-dependent diabetic Lactic acidosis, likely secondary to dehydration, resolved Thrombocytopenia, resolved Hypertension Hyperlipidemia BPH GERD Hospital course; Patient is a 69 year old male with PMHx of HFrEF (EF of 35 to 40% on ARDEN from March 2024), paroxysmal Afib, obstructive sleep apnea, insulin-dependent diabetes mellitus, hypertension, hyperlipidemia, BPH and GERD who presented to the ED with chief complaint of shortness of breath. Upon arrival of EMS, patient was oxygenating in the 70s. He received a DuoNeb treatment and was placed on 4 L of oxygen. Patient reports he follows with Dr. Mcdonald and is supposed to have an ablation done on 11/[address] Sears for his A-fib. Additionally but patient follows with Dr. Padilla for his sleep apnea, but states he is not compliant with his CPAP. Patient reports that cardiology told him to discontinue his Lasix and amiodarone. Patient reports compliance with his Eliquis and other medications. Patient states the dyspnea started today and has been getting progressively worse, is worse with exertion, and he spent the entire day in bed today. Patient denies use of home oxygen. Patient does endorse orthopnea and states he requires 4 pillows at night. He is currently also endorsing a dry cough, runny nose, nasal congestion. Patient also reports that 2 days ago he had some bodyaches, nausea, fatigue, chills, some abdominal discomfort, and d ecreased oral intake. He states that his ex- and her who was with have both been sick with the flu. Patient denies fevers, vomiting, headaches, urinary or bowel complaints, or leg swelling. During hospital stay patient's breathing continue to improve with treatment. Patient discharged in stable condition to home. Patient to begin Lasix 20 mg daily and continue Tamiflu course. Also home insulin Levemir was changed to 40 units nightly. He is to follow-up with his PCP and Dr. Sears. Physical examination: Vital signs reviewed General: nontoxic, non distressed, appears at stated age, obese Derm: warm, dry, intact Head: atraumatic, normocephalic, symmetric Eyes: anicteric sclera Mouth: no lip lesion, mucus membranes moist Cardiovascular: S1 S2 reg, no murmur Lungs: No wheeze, no rhonchi or rales Abdominal: soft, non-tender to palpation, nondistended Extremities: No cyanosis, clubbing, or pedal edema. No pitting edema Neuro: Alert, Oriented to person, time and place, Gross neurological examination did not reveal any focal deficits. Cranial nerves II to XII grossly intact. Bilateral upper and lower extremity muscle strength intact and sensation intact. Psych: well appearing, appropriate affect Dictation was produced using [employer] dictation software. please excuse any grammatical, word or spelling errors. I saw and evaluated the patient during the kim and critical portions of this encounter, and discussed the case in detail with the resident author of this note, I agree with the Assessment and Plan, and my changes, if any, are highlighted in blue. Patient Condition at Discharge: Stable Plan - Discharge Summary Discharge Rx Participant: No New Discharge Prescriptions: New Furosemide [Lasix] 20 mg PO DAILY #30 tab Oseltamivir [Tamiflu] 30 mg PO Q12HR #4 cap Continue Saw Tram (Unknown Dose) 1 tab PO DAILY Multivitamins, Thera [Multivitamin (formulary)] 1 tab PO DAILY Apixaban [Eliquis] 5 mg PO BID Omeprazole 20 mg PO DAILY Empagliflozin [Jardiance] 25 mg PO DAILY Atorvastatin [Lipitor] 40 mg PO DAILY Tamsulosin [Flomax] 0.4 mg PO HS Magnesium Oxide [Mag-Ox] 400 mg PO DAILY Metoprolol Succinate [Metoprolol Succinate ER] 25 mg PO DAILY Insulin Aspart [NovoLOG Flexpen] 10 units SQ TID Sacubitril/Valsartan [Entresto 24 mg-26 mg Tablet] 1 tab PO BID Changed Insulin Detemir [Levemir Flexpen] 40 units SQ HS #0 Discharge Medication List Apixaban [Eliquis] 5 mg PO BID 04/04/24 [History] Empagliflozin [Jardiance] 25 mg PO DAILY 04/04/24 [History] Insulin Aspart [NovoLOG Flexpen] 10 units SQ TID 04/04/24 [History] Magnesium Oxide [Mag-Ox] 400 mg PO DAILY 04/04/24 [History] Metoprolol Succinate [Metoprolol Succinate ER] 25 mg PO DAILY 04/04/24 [History] Multivitamins, Thera [Multivitamin (formulary)] 1 tab PO DAILY 04/04/24 [Histo ry] Omeprazole 20 mg PO DAILY 04/04/24 [History] Saw Tram (Unknown Dose) 1 tab PO DAILY 04/04/24 [History] Tamsulosin [Flomax] 0.4 mg PO HS 04/04/24 [History] Atorvastatin [Lipitor] 40 mg PO DAILY 11/15/24 [History] Sacubitril/Valsartan [Entresto 24 mg-26 mg Tablet] 1 tab PO BID 11/15/24 [History] Furosemide [Lasix] 20 mg PO DAILY #30 tab 11/17/24 [Rx] Insulin Detemir [Levemir Flexpen] 40 units SQ HS #0 11/17/24 [Rx] Oseltamivir [Tamiflu] 30 mg PO Q12HR #4 cap 11/17/24 [Rx] Follow up Appointment(s)/Referral(s): Armando Sears MD [STAFF PHYSICIAN] - 1 Week [facility]Clinic [Primary Care Provider] - 1-2 days Patient Instructions/Handouts: Oseltamivir (By mouth), Influenza (DC) Discharge Disposition: HOME SELF-CARE
--- NOTE | 2024-11-18 07:45 | PN ---
PROGRESS NOTE SUBJECTIVE: This is a 69-year-old male who is seen today in room 378. The patient was admitted with acute hypoxemic respiratory failure secondary to influenza A. In addition, the patient was initially admitted with a diagnosis of atrial fibrillation, with rapid ventricular response. The patient was started on Tamiflu. He is resting comfortably in bed. He is on room air. He is not receiving any IV fluids. Clinically, the patient is much improved. PHYSICAL EXAMINATION: VITAL SIGNS: Current vital signs include temperature 97 degrees, heart rate 90, respiratory rate 18, blood pressure 105/61, mean 75 and a room air saturation of 95%. GENERAL: He appears in no acute distress. HEENT: grossly unremarkable. NECK: Supple. Full range of motion. No adenopathy. Neck veins are flat. CARDIOVASCULAR: Reveals regular rhythm and rate. S1, S2 normal. No murmur. LUNGS: Reveal clear breath sounds. No wheezes, rhonchi, or crackles. ABDOMEN: Soft. Bowel sounds are heard. EXTREMITIES: Intact. No cyanosis, clubbing, or edema. SKIN: Without rash. NEUROLOGIC: Brief, but nonfocal. LABORATORY DATA: White count 4.1, hemoglobin 15.5, hematocrit 48.1, platelet count 133,000. Sodium 137, potassium 4.3, chloride 101, CO2 of 28, BUN 37 and creatinine 1.12. Glucose is 99. ASSESSMENT: 1. Acute influenza A infection. 2. Atrial fibrillation with rapid ventricular rate, resolved. 3. Acute systolic congestive heart failure exacerbation. 4. Acute hypoxemic respiratory failure. 5. Elevated troponins, likely type 2 mechanism. 6. Anion gap metabolic acidosis with lactic acidemia, resolved. 7. Hypertension. 8. History of hyperlipidemia. 9. History of heart failure with reduced ejection fraction. 10.Diabetes mellitus, insulin dependent. 11.Morbid obesity. 12.Sleep apnea syndrome. PLAN: The patient is doing well. He is stable on room air. He is not receiving any IV fluids. He continues on Tamiflu for a total of 5 days, twice a day, 75 mg. No additional recommendations are made. The patient is being evaluated for possible discharge. We will leave that up to the primary service. MMANDREA / JEAN CLAUDEN: [id number] /
== END 2024-11-17 11:57 | disposition home or self-care (01) | DRG 193 ==
LOC: EC 20:24 → 3SCARD 22:53
PROVIDERS: ADMIT Internal Medicine; ATTEND Internal Medicine
DX: J10.1 Influenza due to other identified influenza virus with other respiratory manifestations (principal); I21.A1 Myocardial infarction type 2; I50.23 Acute on chronic systolic (congestive) heart failure; J96.01 Acute respiratory failure with hypoxia; E87.20 Acidosis, unspecified; D69.6 Thrombocytopenia, unspecified; I42.9 Cardiomyopathy, unspecified; I48.19 Other persistent atrial fibrillation; E86.0 Dehydration; I13.0 Hypertensive heart and chronic kidney disease with heart failure and stage 1 through stage 4 chronic kidney disease, or unspecified chronic kidney disease; E11.22 Type 2 diabetes mellitus with diabetic chronic kidney disease; N18.31 Chronic kidney disease, stage 3a; E66.01 Morbid (severe) obesity due to excess calories; E11.65 Type 2 diabetes mellitus with hyperglycemia; Z68.41 Body mass index [BMI] 40.0-44.9, adult; Z79.4 Long term (current) use of insulin; E78.5 Hyperlipidemia, unspecified; N40.0 Benign prostatic hyperplasia without lower urinary tract symptoms; K21.9 Gastro-esophageal reflux disease without esophagitis; G47.33 Obstructive sleep apnea (adult) (pediatric); Z91.198 Patient's noncompliance with other medical treatment and regimen for other reason; Z79.01 Long term (current) use of anticoagulants; Z79.84 Long term (current) use of oral hypoglycemic drugs; Z79.899 Other long term (current) drug therapy; Z87.891 Personal history of nicotine dependence
CPT/HCPCS: 36415; 71046; 80048; 80053; 83036; 83605; 83735; 83880; 84145; 84484; 85025; 85610; 85730; 87636; 93005; 94640; 94760; 96365; 96366; 96367; 96375; 99285

== ENCOUNTER → 2025-02-06 | Outpatient (CLI) | payer OTHER, MEDICARE ==
[2025-02-06 15:55] LABS: HCT 53.4 % (39.6-50.0); HGB 16.8 g/dL (13.0-17.0); MCH 31.6 pg (27.0-32.0); MCHC 31.5 g/dL (32.0-37.0); MCV 100.4 FL (80.0-97.0); Mean Platelet Volume 10.8 FL (9.5-12.2); NRBC Per 100 WBC 0 X 10*3/uL (0.00-0.01); Platelet Count 201 X 10*3/uL (140-440); RBC 5.32 X 10*6/uL (4.40-5.60); RDW 13.1 % (11.5-14.5); WBC 5.69 X 10*3/uL (4.50-10.00)
[2025-02-06 15:57] LABS: Blood Urea Nitrogen 19.7 mg/dL (9.0-27.0); Chloride 107 mmol/L (96-109); Sodium 142 mmol/L (135-145)
== END | disposition home or self-care (01) ==
LOC: LABPAT 12:32
PROVIDERS: ATTEND Internal Medicine Clinical Cardiac Electrophysiology
DX: Z01.812 Encounter for preprocedural laboratory examination (principal); I48.0 Paroxysmal atrial fibrillation
CPT/HCPCS: 80051; 82565; 84520; 85027

== ENCOUNTER 2025-02-21 05:44 | Day surgery (SDC) | payer MEDICARE, OTHER ==
[2025-02-19 11:16] VITALS: BMI 38.6
[2025-02-21 06:33] LABS: Glucose,Whole Blood 84 mg/dL (70-110)
[2025-02-21] MEDS: IV FLUID CONTINUATION 1,000 ML IV ONE (06:34)
[2025-02-21 06:58] LABS: ALT 25 U/L (4-49); AST 27 U/L (17-59); African American GFR (CKD) 87 (>60 ml/min/1.73 sqM); Albumin 3.8 g/dL (3.5-5.0); Alkaline Phosphatase 79 U/L (38-126); Anion Gap 9 mmol/L; Blood Urea Nitrogen 22 mg/dL (9-20); Calcium 9.2 mg/dL (8.4-10.2); Carbon Dioxide 23 mmol/L (22-30); Chloride 107 mmol/L (98-107); Glucose 98 mg/dL (74-99); Non-African American GFR(CKD) 75 (>60 ml/min/1.73 sqM); Potassium 4.1 mmol/L (3.5-5.1); Sodium 139 mmol/L (137-145); Total Protein 6.3 g/dL (6.3-8.2)
[2025-02-21] MEDS ORDERED: GLYCOPYRROLATE 0.2 MG/ML 2 ML VIAL ONE (07:23)
[2025-02-21] MEDS ORDERED: HEPARIN SODIUM,PORCINE 10,000 UNIT/ML 1 ML VIAL ONE (07:23)
[2025-02-21] MEDS ORDERED: HEPARIN SODIUM,PORCINE 5,000 UNIT/ML 1 ML VIAL ONE (07:23)
[2025-02-21] MEDS ORDERED: ROCURONIUM 10 MG/ML (5 ML VIAL) IV ONE (07:23)
[2025-02-21] MEDS ORDERED: fentaNYL (PF) 50 MCG/ML 2 ML AMP ONE (07:23)
[2025-02-21] MEDS ORDERED: MIDAZOLAM 2 MG/2 ML VIAL ONE (07:23)
[2025-02-21] MEDS ORDERED: SUCCINYLCHOLINE CHLORIDE 200 MG/10 ML VIAL IV ONE (07:23)
[2025-02-21] MEDS ORDERED: PROPOFOL 10 MG/ML 20 ML VIAL IV ONE (07:23)
[2025-02-21] MEDS: HEPARIN SOD,PORK IN 0.45% NACL 25,000 UNIT in 0.45% NACL 1 250ML.BAG IV ONE (07:25)
[2025-02-21] MEDS: HEPARIN SODIUM,PORCINE (1 ML) 2,500 UNIT in SODIUM CHLORIDE 0.9% 250 ML IRRIGATION ONE (07:25)
[2025-02-21] MEDS: HEPARIN SODIUM,PORCINE 10,000 UNIT in SODIUM CHLORIDE 0.9% 1,000 ML IRRIGATION ONE (07:25)
[2025-02-21] MEDS: LIDOCAINE 1% INJ 10MG/ML (20 ML MDV) SQ ONE (08:03)
[2025-02-21 08:48] LABS: Glucose,Whole Blood 91 mg/dL (70-110)
--- NOTE | 2025-02-21 10:14 | P.HPCAR ---
History of Present Illness This is Dr. Sears dictating an H/P on this patient The patient was interviewed and examined IMPRESSION / ASSESSMENT: Persistent atrial fibrillation with associated congestive heart failure Symptomatic with tiredness fatigue shortness of breath Associated cardiomyopathy, ejection fraction 45% Failed amiodarone and back in A-fib Increased BMI with obstructive sleep apnea using a CPAP mask Normal coronary arteries PLAN: Stop amiodarone completely A-fib ablation Continue anticoagulation Heparin dose calculated Continue cardiomyopathy medications HPI Patient complains of tiredness fatigue and dizziness when in A-fib No chest discomfort no loss of consciousness No respiratory complaints no bronchitis or fever chills recently ROS: No fever chills or rigors, no cough, phlegm or expectoration, no nausea, vomiting or diarrhea, no hematuria, dysuria, no musculoskeletal complaints, no strokes or seizures, no skin lesions. EXAMINATION: Blood pressure 143/78 mmHg pulse rate initially 100 beats a minute irregular afebrile Breath sounds are reduced bilaterally Heart sounds are irregular but normal no murmurs No JVD No lower extremity edema Central obesity REVIEW OF LABS, ECG & MEDICAL DATA Sodium 139 potassium 4.1 BUN 22 and creatinine 1.0 AST and ALT are normal TSH normal Physical Exam Vitals: Vital Signs Temp Pulse Resp BP Pulse Ox 02/21/25 06:33 98 F 101 H 18 143/78 98 Intake and Output 02/20/25 02/21/25 02/21/25 22:59 06:59 14:59 Intake Total 20 2 Balance 20 2 Intake: IV 20 2 Other: Weight 106.1 kg Past Medical History Past Medical History: Atrial Fibrillation, Heart Failure, Diabetes Mellitus, GERD/Reflux, Hyperlipidemia, Hypertension, Osteoarthritis (OA), Prostate Disorder, Sleep Apnea/CPAP/BIPAP Additional Past Medical History / Comment(s): See Dr Sears's H&P. Hx rectal fissure, hemorrhoids. CPAP use. Lower extremity neuropathy. Sciatica, congential hemivertebra C2, stiff/sore neck. History of Any Multi-Drug Resistant Organisms: None Reported Past Surgical History: Orthopedic Surgery Additional Past Surgical History / Comment(s): Left shoulder surgery. Past Anesthesia/Blood Transfusion Reactions: No Reported Reaction Smoking Status: Former smoker - Past Family History Mother Family Medical History: Cancer Additional Family Medical History / Comment(s): Breast cancer with mets to brain. Physical Examination Vital Signs Temp Pulse Resp BP Pulse Ox 02/21/25 06:33 98 F 101 H 18 143/78 98 Intake and Output 02/20/25 02/21/25 02/21/25 22:59 06:59 14:59 Intake Total 20 2 Balance 20 2 Intake: IV 20 2 Other: Weight 106.1 kg Results 02/21/25 06:15 Cardiac Enzymes 02/21/25 Range/Units 06:15 AST 27 (17-59) U/L Comprehensive Metabolic Panel 02/21/25 Range/Units 06:15 Sodium 139 (137-145) mmol/L Potassium 4.1 (3.5-5.1) mmol/L Chloride 107 (98-107) mmol/L Carbon Dioxide 23 (22-30) mmol/L BUN 22 H (9-20) mg/dL Creatinine 1.00 (0.66-1.25) mg/dL Glucose 98 (74-99) mg/dL Calcium 9.2 (8.4-10.2) mg/dL AST 27 (17-59) U/L ALT 25 (4-49) U/L Alkaline Phosphatase 79 (38-126) U/L Total Protein 6.3 (6.3-8.2) g/dL Albumin 3.8 (3.5-5.0) g/dL Current Medications Generic Name Dose Route Start Last Admin Trade Name Freq PRN Reason Stop Dose Admin Acetaminophen 650 mg 02/21/25 10:08 Acetaminophen Tab 325 Mg Tab PO 03/23/25 10:07 Q6HR PRN Mild Pain (Scale 1 to 3) Apixaban 5 mg 02/21/25 21:00 Apixaban 5 Mg Tab PO 03/23/25 20:59 BID KEVIN Protocol Atorvastatin Calcium 40 mg 02/21/25 21:00 Atorvastatin 80 Mg Tab PO 03/23/25 20:59 HS KEVIN Furosemide 20 mg 02/21/25 10:15 Furosemide 20 Mg Tab PO 03/23/25 10:14 DIRECTED KEVIN Lactated Ringer's 1,000 mls @ 20 mls/hr 02/21/25 05:59 Lactated Ringers IV 03/23/25 05:58 .Q24H KEVIN Sodium Chloride 1,000 mls @ 20 mls/hr 02/21/25 05:59 Saline 0.9% IV 03/23/25 05:58 .Q24H KEVIN Acetaminophen 1,000 mg/ IV 100 mls @ 400 mls/hr 02/21/25 10:08 Solution IVPB 02/21/25 10:22 ONCE ONE Magnesium Oxide 400 mg 02/22/25 09:00 Magnesium Oxide 400 Mg Tab PO 03/24/25 08:59 DAILY KEVIN Metoprolol Succinate 25 mg 02/22/25 09:00 Metoprolol Succinate (Er) 25 Mg Tab.Er.24h PO 03/24/25 08:59 DAILY [facility] Non-Formulary Medication 25 mg 02/22/25 09:00 Empagliflozin [Jardiance] PO 03/24/25 08:59 DAILY [facility] Non-Formulary Medication 28 units 02/21/25 21:00 Insulin Detemir [Levemir Flexpen] SQ 03/23/25 20:59 HS [facility] Non-Formulary Medication 20 mg 02/22/25 07:30 Omeprazole [Omeprazole] PO 03/24/25 07:29 AC-BRKFST [facility] Sacubitril/Valsartan 1 each 02/21/25 21:00 Sacubitril/Valsartan 24 Mg-26 Mg Tablet PO 03/23/25 20:59 BID [facility] Sodium Chloride 12 ml 02/21/25 10:08 Sodium Chloride 0.9% Flush 10 Ml Syringe IV 03/23/25 10:07 Q12HR PRN Line Flush Tamsulosin HCl 0.4 mg 02/21/25 21:00 Tamsulosin 0.4 Mg Cap.Er.24h PO 03/23/25 20:59 HS [facility] Intake and Output 02/20/25 02/21/25 02/21/25 22:59 06:59 14:59 Intake Total 20 2 Balance 20 2 Intake: IV 20 2 Other: Weight 106.1 kg 02/21/25 06:15
[2025-02-21] MEDS ORDERED: FUROSEMIDE 20 MG TAB PO SCH (10:15)
--- NOTE | 2025-02-21 10:18 | P.EPPROC ---
- EP Procedure Note Electrophysiology Procedure Note: PROCEDURE A. fib ablation with entry-level PVI, left atrial septal ablation and left atrial roof ablation DIAGNOSIS Atrial fibrillation, symptomatic, refractory to therapy with amiodarone and electrical cardioversion RESULT No left atrial appendage mass seen on intracardiac echo Successful A. fib ablation/pulmonary vein isolation of all veins using cryo- ablation Complete entrance block in all 4 veins confirmed Left atrial roof ablation with cryoablation and confirmation with achieve ca theter Left atrial septal ablation with cryoablation and confirmation with achieve catheter No evidence for phrenic nerve injury Esophageal deflection YES Electrical cardioversion with a synchronized shock across the chest YES PROCEDURE DETAILS Written informed consent prior to procedure. Patient brought to the EP lab. General anesthesia given. Heparin administered. A city maintained above 300 seconds Both groins prepped and draped per protocol and venous sheaths placed. Esophagus intubated, circa catheter for temperature monitoring an endoscope for possible esophageal deflection. Phrenic nerve monitoring performed. Esophageal temperature monitoring performed. Esophageal deflection performed if circa catheter overlapping with the balloon or circa temperature less than 27.5°C Intracardiac echocardiography performed. Pericardium evaluated. Left atrial appendage evaluated. Left atrium evaluated along with pulmonary veins Transseptal catheterization performed under fluoroscopic guidance and intracardiac echo guidance Cryoablation sheath exchanged, balloon catheter along with achieve catheter placed in the left atrium. Pulmonary veins isolated in the following sequence: Left superior pulmonary vein followed by left inferior pulmonary vein, followed by right inferior pulmonary vein and lastly right superior pulmonary vein. Phrenic nerve stimulation along with capture thresholds within the SVC and right superior pulmonary vein to identify the phrenic nerve proximity to the cryo- balloon. Pulmonary veins isolated and confirmed with entrance and exit block. Phrenic nerve integrity confirmed at the end of the procedure Ablation of the left atrial roof performed with sequential lesions from the left superior to the right superior pulmonary veins. Ablation of the electrograms confirmed with achieve catheter Ablation of the left atrial septum performed with cannulation of the superior branch of the right inferior to achieve ablation of the posterior septum of the left atrium. Ablation of electrograms confirmed with achieve catheter Organization of atrial fibrillation to an atrial tachycardia with a cycle length of about 210 ms, upright in V1, upright in the inferior leads, simultaneous peak of the electrograms in V1 and inferior leads Electrical cardioversion performed for persistence of atrial fibrillation despite successful ablation. Diagnostic catheters for the high right atrium, His bundle, coronary sinus placed. LA and RA pressures recorded LA pressure: 18/-38 Diagnostic EP study with coronary sinus pacing and recording Baseline measurements: QRS 106 ms and QT 448 ms Venous sheaths were removed and hemostasis assured with a closure device. Patient extubated and transferred to recovery PROCEDURES PERFORMED Diagnostic EP study CS pacing and recording Left and right transseptal catheterization Catheter the mapping of the tachycardia Intracardiac echocardiography Pulmonary vein isolation with transseptal and comprehensive EPS, [id number] Left atrial roof line, +[id number] Linear ablation, left atrium, +[id number] Electrical cardioversion with a synchronized shock across the chest [id number]
[2025-02-21] MEDS: ACETAMINOPHEN IV (For NPO) 1,000 MG in EMPTY BAG 1 BAG IVPB ONE (11:17)
[2025-02-21] MEDS: LACTATED RINGERS 1,000 ML IV SCH (12:02)
[2025-02-21 12:47] LABS: Glucose,Whole Blood 94 mg/dL (70-110)
[2025-02-21 17:26] LABS: Glucose,Whole Blood 152 mg/dL (70-110)
[2025-02-21] MEDS: SODIUM CHLORIDE 0.9% 1,000 ML IV SCH (18:28)
[2025-02-21] MEDS: ACETAMINOPHEN TAB 325 MG TAB PO PRN (18:34)
[2025-02-21 19:42] LABS: Glucose,Whole Blood 194 mg/dL (70-110)
[2025-02-21] MEDS: SACUBITRIL/VALSARTAN 24 MG-26 MG TABLET PO SCH (20:57)
[2025-02-21] MEDS: TAMSULOSIN 0.4 MG CAP.ER.24H PO SCH (20:57)
[2025-02-21] MEDS: INSULIN GLARGINE (LANTUS) 100 UNIT/ML SYR SQ SCH (20:57)
[2025-02-21] MEDS: APIXABAN 5 MG TAB PO SCH (20:57)
[2025-02-21] MEDS: ATORVASTATIN 40 MG TAB PO SCH (20:57)
[2025-02-22 05:49] LABS: Glucose,Whole Blood 166 mg/dL (70-110)
[2025-02-22] MEDS: PANTOPRAZOLE 40 MG TABLET PO SCH (06:05)
[2025-02-22] MEDS: DAPAGLIFLOZIN PROPANEDIOL 10 MG TABLET PO SCH (07:49)
[2025-02-22] MEDS: MAGNESIUM OXIDE 400 MG TAB PO SCH (07:49)
[2025-02-22] MEDS: METOPROLOL SUCCINATE (ER) 25 MG TAB.ER.24H PO SCH (07:50)
[2025-02-22 08:06] VITALS: BP 111/68; PULSE 78; RESP 16; TEMP 98.1
--- NOTE | 2025-02-22 14:10 | DS ---
DISCHARGE SUMMARY Mr. Omkar Isabel is a patient of Dr. Conrad and Dr. Mcdonald. He has persistent symptomatic atrial fibrillation with associated cardiomyopathy and heart failure symptoms. He underwent an atrial fibrillation ablation yesterday with linear ablation in the left atrium along with entry-level PVI. This resulted in organization of atrial fibrillation and thereafter, he underwent electrical cardioversion. He is doing very well today. Mild sore throat. No chest pain. Vitals are stable. Groins have healed well. No hematoma. No swelling. No JVD. IMPRESSION: Persistent atrial fibrillation associated with cardiomyopathy and heart failure, status post ablation. PLAN: Discharge home today and follow up with Dr. Mcdonald in 1 week. The patient was instructed not to stop Eliquis for the next 2 months for any reason. Uninterrupted Eliquis for the next 2 months without any temporary cessation. MMODL / IJN: [id number] /
[2025-02-23] MEDS ORDERED: FUROSEMIDE 20 MG TAB PO SCH (09:00)
== END 2025-02-22 09:45 | disposition home or self-care (01) ==
LOC: CATHEP 05:44 → 6NMEDSUR 11:17 → CATHEP 02-22 09:45
PROVIDERS: ATTEND Internal Medicine Clinical Cardiac Electrophysiology
DX: I48.19 Other persistent atrial fibrillation (principal); I11.0 Hypertensive heart disease with heart failure; I50.9 Heart failure, unspecified; I42.8 Other cardiomyopathies; E11.40 Type 2 diabetes mellitus with diabetic neuropathy, unspecified; E78.5 Hyperlipidemia, unspecified; G47.33 Obstructive sleep apnea (adult) (pediatric); K21.9 Gastro-esophageal reflux disease without esophagitis; M19.90 Unspecified osteoarthritis, unspecified site; E66.89 Other obesity not elsewhere classified; Z79.01 Long term (current) use of anticoagulants; Z79.84 Long term (current) use of oral hypoglycemic drugs; Z79.4 Long term (current) use of insulin; Z79.899 Other long term (current) drug therapy; Z87.891 Personal history of nicotine dependence; Z88.0 Allergy status to penicillin; Z82.49 Family history of ischemic heart disease and other diseases of the circulatory system
CPT/HCPCS: 92960; 93656; 93657; 86900; 86901; 80053; 84443; 86850; C1894; C1769; C1760 ×3; C1730 ×2; C1759; C1733; C1766; J2250; J0330; J1644 ×3; J2003; J3010; J0131; J2704; J1596